=== PATIENT | male | born 1960 | race Caucasian/White ===

== ENCOUNTER 2023-01-20 11:00 | Outpatient (OUT) | payer BC, SELFPAY ==
[2023-01-20 11:35] LABS: Basophils Percent Auto 0.5 % (0.2-2.0); Eosinophils Absolute Auto 0.2 10^3/uL (0.0-0.7); Eosinophils Percent Auto 2.6 % (0.9-7.0); Hematocrit 36.8 % (42.0-54.0); Hemoglobin 12.6 g/dL (14.0-18.0); Immature Granulocytes Abs Auto 0.04 10^3/uL (0.00-0.03); Immature Granulocytes Pct Auto 0.5 % (0.0-0.5); Lymphocytes Absolute Auto 1.9 10^3/uL (1.2-3.8); Lymphocytes Percent Auto 23.7 % (20.5-60.0); Mean Corpuscular HGB Conc 34.2 g/dL (29.9-35.2); Mean Corpuscular Hemoglobin 31.2 pg (25.9-34.0); Mean Corpuscular Volume 91.1 fL (80.0-94.0); Monocytes Absolute Auto 0.5 10^3/uL (0.3-0.8); Monocytes Percent Auto 5.8 % (1.7-12.0); Neutrophils Absolute Auto 5.4 10^3/uL (1.4-6.5); Neutrophils Percent Auto 66.9 % (43.0-75.0); Platelet Count 184 10^3/uL (150-450); Red Blood Count 4.04 10^6/uL (4.70-6.10); Red Cell Distribution Width 11.7 % (11.0-15.0); White Blood Count 8.1 10^3/uL (4.0-11.0)
[2023-01-20 12:30] LABS: Prostate Specific Antigen Scrn 1.81 ng/mL (<=4.00)
[2023-01-20 12:44] LABS: Alanine Aminotransferase 27 U/L (16-63); Albumin Level 3.8 g/dL (3.4-5.0); Alkaline Phosphatase 90 U/L (46-116); Anion Gap 10.2; Aspartate Amino Transferase 20 U/L (15-37); BUN Creatinine Ratio 24.1; Bilirubin Total 0.3 mg/dL (0.2-1.0); Calcium 9.2 mg/dL (8.5-10.1); Carbon Dioxide 30.9 mmol/L (21.0-32.0); Chloride 99 mmol/L (98-107); Chol HDL Ratio 4.2; Cholesterol 211 mg/dL (<=200); Estimated GFR (African America >60 (>=60); Estimated GFR (Non-African Ame >60 (>=60); Free T3 2.57 pg/mL (2.18-3.98); Globulin 3.7 g/dL; Glucose 170 mg/dL (74-106); HDL Cholesterol 50 mg/dL (40-60); Potassium 4.1 mmol/L (3.5-5.1); Sodium 136 mmol/L (136-145); Thyroid Stimulating Hormone 3.176 uIU/mL (0.358-3.740); Total Protein 7.5 g/dL (6.4-8.2); Triglycerides 180 mg/dL (<=150); Uric Acid 7.4 mg/dL (3.5-7.2)
[2023-01-20 19:25] LABS: Estimated Average Glucose 160 mg/dL; Glycohemoglobin A1C 7.2 % (4.5-6.2)
[2023-01-21 10:08] LABS: Insulin 15.2 uIU/mL (2.6-24.9)
== END 2023-01-20 11:01 | disposition home or self-care (01) ==
PROVIDERS: PCP Family Medicine; Visit Provider Family Medicine
DX: M54.50 Low back pain, unspecified (principal); E11.3513 Type 2 diabetes mellitus with proliferative diabetic retinopathy with macular edema, bilateral; E78.5 Hyperlipidemia, unspecified; I10 Essential (primary) hypertension; Z12.5 Encounter for screening for malignant neoplasm of prostate; Z12.12 Encounter for screening for malignant neoplasm of rectum
CPT/HCPCS: 36415; 80053; 80061; 83036; 83525; 84436; 84443; 84481; 84550; 85025; G0103

== ENCOUNTER 2023-04-10 11:11 | Outpatient (OUT) | payer BC, SELFPAY ==
--- OUTSIDE RECORDS SUMMARY | 2023-04-10 11:22 | XMS_ITS | CCD ---
Author Name Unknown Address [address] [facility] [facility] [address] [place] [address] Organization [facility] Care Team Providers Care Qualitative Field Coordinator Name Role Phone PAPO MEZA Attending Unavailable PAPO MEZA Primary Care Unavailable PAPO MEZA Attending Unavailable PAPO MEZA Primary Care Unavailable PAPO MEZA Admitting Unavailable PAPO MEZA Primary Care Unavailable LENKA YATES Attending Unavailable YAZMINY, DR BARROS Admitting Unavailable HOY, DR BARROS Attending Unavailable YAZMINY, DR BARROS Primary Care Unavailable YAZMINY, DR BARROS Admitting Unavailable HOY, DR BARROS Attending Unavailable HOY, DR BARROS Primary Care Unavailable HOY, DR BARROS Admitting Unavailable HOY, DR BARROS Attending Unavailable HOY, DR BARROS Primary Care Unavailable HOY, DR BARROS Consulting Unavailable HOY, DR BARROS Admitting Unavailable HOY, DR BARROS Attending Unavailable HOY, DR BARROS Primary Care Unavailable Problems Problem Classification Problem Date Documented Date Episodic/Chronic Diabetes mellitus with complications (2 sources) Type 2 diabetes mellitus with unspecified diabetic retinopathy with macular edema; Translations: [Type 2 diabetes mellitus with proliferative diabetic retinopathy with macular edema, bilateral] Onset: 08-30-2021 Chronic Diabetes mellitus without complication (1 source) Other abnormal glucose; Translations: [OTHER ABNORMAL GLUCOSE] Onset: 08-30-2021 Episodic Essential hypertension (1 source) Essential (primary) hypertension; Translations: [ESSENTIAL PRIMARY HYPERTENSION] Onset: 08-30-2021 Chronic Nonspecific chest pain (4 sources) Chest pain, unspecified; Translations: [CHEST PAIN UNSPECIFIED] Onset: 08-27-2021 Episodic Other male genital disorders (1 source) Male erectile dysfunction, unspecified; Translations: [MALE ERECTILE DYSFUNCTION UNS] Onset: 08-30-2021 Chronic Other screening for suspected conditions (not mental disorders or infectious disease) (2 sources) Encounter for screening for malignant neoplasm of prostate; Translations: [Encounter for screening for malignant neoplasm of rectum] Onset: 08-30-2021 Episodic Results Test Name Value Interpretation Reference Range Facility INSULINon 08-28-2021 Insulin 22.9 uIU/mL Normal 2.6-24.9 [facility] Comment on above: Performed By: #### I NSULIN #### [facility] [address] [address] [address] Abdias Adkins CBC AUTO DIFFon 08-27-2021 BASO # 0.0 103/ul Normal 0.0-0.1 [facility] Comment on above: Performed By: #### C BC #### [facility] [address] [address] [address] Abdias Adkins Basophils/100 WBC (Bld) 0.5 % Normal 0.2-2.0 [facility] Comment on above: Performed By: #### C BC #### [facility] [address] [address] [address] Abdias Adkins EO # 0.2 103/ul Normal 0.0-0.7 [facility] Comment on above: Performed By: #### C BC #### [facility] [address] [address] [address] Abdias Adkins Eosinophils/100 WBC (Bld) 2.1 % Normal 0.9-7.0 [facility] Comment on above: Performed By: #### C BC #### [facility] [address] [address] [address] Abdias Adkins Erythrocyte distribution width (RBC) [Ratio] 11.9 % Normal 11.0-15.0 [facility] Comment on above: Performed By: #### C BC #### [facility] [address] [address] [address] Abdias Adkins Hematocrit (Bld) [Volume fraction] 36.6 % Critically low 42.0-54.0 [facility] Comment on above: Performed By: #### C BC #### [facility] [address] [address] [address] Abdias Adkins Hemoglobin (Bld) [Mass/Vol] 12.8 g/dL Critically low 14.0-18.0 [facility] Comment on above: Performed By: #### C BC #### [facility] [address] [place] [address] Dr. Abdias Adkins IG # 0.04 10e3/ul Critically high 0.00-0.03 [facility] Comment on above: Performed By: #### C BC #### [facility] [address] [place] [address] Dr. Abdias Adkins IG % 0.5 % Normal 0.0-0.5 [facility] Comment on above: Performed By: #### C BC #### [facility] [address] [place] [address] Dr. Abdias Adkins LYMPH # 2.1 103/ul Normal 1.2-3.8 [facility] Comment on above: Performed By: #### C BC #### [facility] [address] [place] [address] Dr. Abdias Adkins Lymphocytes/100 WBC (Bld) 25.5 % Normal 20.5-60.0 [facility] Comment on above: Performed By: #### C BC #### [facility] [address] [place] [address] Dr. Abdias Adkins MANUAL DIFF REQ NO Normal [facility] Comment on above: Performed By: #### C BC #### [facility] [address] [place] [address] Dr. Abdias Adkins MCH (RBC) [Entitic mass] 30.8 pg Normal 25.9-34.0 [facility] Comment on above: Performed By: #### C BC #### [facility] [address] [place] [address] Dr. Abdias Adkins MCHC (RBC) [Mass/Vol] 35.0 g/dL Normal 29.9-35.2 [facility] Comment on above: Performed By: #### C BC #### [facility] [address] [place] [address] Dr. Abdias Adkins MCV (RBC) [Entitic vol] 88.0 fL Normal 80.0-94.0 [facility] Comment on above: Performed By: #### C BC #### [facility] [address] [address] [address] Abdias Adkins MONO # 0.4 103/ul Normal 0.3-0.8 [facility] Comment on above: Performed By: #### C BC #### [facility] [address] [address] [address] Abdias Adkins Monocytes/100 WBC (Bld) 4.9 % Normal 1.7-12.0 [facility] Comment on above: Performed By: #### C BC #### [facility] [address] [address] [address] Abdias Adkins NEUT # 5.5 103/ul Normal 1.4-6.5 [facility] Comment on above: Performed By: #### C BC #### [facility] [address] [place] [address] Dr. Abdias Adkins Neutrophils/100 WBC (Bld) 66.5 % Normal 43.0-75.0 [facility] Comment on above: Performed By: #### C BC #### [facility] [address] [address] [address] Abdias Adkins Platelet mean volume (Bld) [Entitic vol] 9.9 fL Normal 9.5-13.5 [facility] Comment on above: Performed By: #### C BC #### [facility] [address] [address] [address] Abdias Adkins PLT 200 103/ul Normal 150-[address] [facility] Comment on above: Performed By: #### C BC #### [facility] [address] [address] [address] Abdias Adkins RBC 4.16 106/ul Critically low 4.70-6.10 [facility] Comment on above: Performed By: #### C BC #### [facility] [address] [address] [address] Abdias Adkins WBC 8.3 103/ul Normal 4.0-11.[address] [facility] Comment on above: Performed By: #### C BC #### [facility] [address] [address] [address] Abdias Adkins FREE THYROXINE INDEX T7on FTI 2.04 Normal 1.30-4.50 [facility] Comment on above: Performed By: #### U SUNDEEP, T7, CMP, LIPID, TSH #### [facility] [address] [address] [address] Abdias Adkins T3U 34.0 % Normal 33.0-40.0 [facility] Comment on above: Performed By: #### U SUNDEEP, T7, CMP, LIPID, TSH #### [facility] [address] [address] [address] Abdias Adkins T4 [Mass/Vol] 6.00 ug/dL Normal 4.50-12.10 [facility] Comment on above: Performed By: #### U SUNDEEP, T7, CMP, LIPID, TSH #### [facility] [address] [address] [address] Abdias Adkins GLYCOHEMOGLOBIN A1Con 2021 ADA RECOMMENDATION SEE BELOW Normal [facility] Comment on above: Result Comment: ADA RECOMMENDED LIMIT 4.0 - 6.0 ADA THERAPEUTIC TARGET < 7.0 ACTION SUGGESTED > 7.0 Performed By: #### A 1C #### [facility] [address] [place] [address] Dr. Abdias Adkins Glucose [Mass/Vol] 189 mg/dL Normal [facility] Comment on above: Performed By: #### A 1C #### [facility] [address] [place] [address] Dr. Abdias Adkins HbA1c (Bld) [Mass fraction] 8.2 % Critically high 4.5-6.2 [facility] Comment on above: Performed By: #### A 1C #### [facility] [address] [place] [address] Dr. Abdias Adkins LIPID PROFILEon 08-27-2021 CHOL-HDL RATIO NORM SEE BELOW Normal [facility] Comment on above: Result Comment: 3.3 - 4.4 LOW RISK 4.4 - 7.1 AVERAGE RISK 7.1 - 11.0 MODERATE RISK >11.0 HIGH RISK Performed By: #### U SUNDEEP, T7, CMP, LIPID, TSH #### [facility] [address] [address] [address] Abdias Adkins Cholesterol [Mass/Vol] 214 mg/dL Critically high <=200 [facility] Comment on above: Performed By: #### U SUNDEEP, T7, CMP, LIPID, TSH #### [facility] [address] [address] [address] Abdias Adkins Cholesterol in HDL [Mass/Vol] 52 mg/dL Normal 40-60 [facility] Comment on above: Performed By: #### U SUNDEEP, T7, CMP, LIPID, TSH #### [facility] [address] [address] [address] Abdias Adkins Cholesterol in LDL [Mass/Vol] 148.4 mg/dL Normal [facility] Comment on above: Performed By: #### U SUNDEEP, T7, CMP, LIPID, TSH #### [facility] [address] [address] [address] Abdias Adkins Cholesterol.total/Cho lesterol in HDL [Mass ratio] 4.1 {ratio} Normal [facility] Comment on above: Performed By: #### U SUNDEEP, T7, CMP, LIPID, TSH #### [facility] [address] [address] [address] Abdias Adkins HDL NORMAL > or = 60 mg/dl - LOW CARDIOVASCULAR RISK <40 mg/dl - HIGH CARDIOVASCULAR RISK Normal [facility] Comment on above: Performed By: #### U SUNDEEP, T7, CMP, LIPID, TSH #### [facility] [address] [address] [address] Abdias Adkins LDL CALC NORMAL SEE BELOW Normal [facility] Comment on above: Result Comment: <100 mg/dl OPTIMAL 100 - 129 mg/dl NEAR OR ABOVE OPTIMAL 130 - 159 mg/dl BORDERLINE HIGH 160 - 189 mg/dl HIGH >190 mg/dl VERY HIGH Performed By: #### U SUNDEEP, T7, CMP, LIPID, TSH #### [facility] [address] [address] [address] Abdias Adkins Triglyceride [Mass/Vol] 68 mg/dL Normal <=[address] [facility] Comment on above: Performed By: #### U SUNDEEP, T7, CMP, LIPID, TSH #### [facility] [address] [address] [address] Abdias Adkins VLDL CALC 13.6 mg/dL Normal [facility] Comment on above: Performed By: #### U SUNDEEP, T7, CMP, LIPID, TSH #### [facility] [address] [address] [address] Abdias Adkins OCC BLD IMMUNO SCREENon 08-15 OCCULT BLOOD Negative Normal NEGATIVE [facility] Comment on above: Performed By: #### O BSCRN #### [facility] [address] [address] [address] Abdias Adkins PROF 14(COMP METB)on 022 Albumin [Mass/Vol] 3.5 g/dL Normal 3.4-5.0 [facility] Comment on above: Performed By: #### U SUNDEEP, T7, CMP, LIPID, TSH #### [facility] [address] [place] [address] Dr. Abdias Adkins Albumin/Globulin [Mass ratio] 1.1 {ratio} Normal [facility] Comment on above: Performed By: #### U SUNDEEP, T7, CMP, LIPID, TSH #### [facility] [address] [address] [address] Abdias Adkins ALP [Catalytic activity/Vol] 103 U/L Normal 46-116 [facility] Comment on above: Performed By: #### U SUNDEEP, T7, CMP, LIPID, TSH #### [facility] [address] [place] [address] Dr. Abdias Adkins ALT [Catalytic activity/Vol] 25 U/L Normal 16-63 [facility] Comment on above: Performed By: #### U SUNDEEP, T7, CMP, LIPID, TSH #### [facility] [address] [address] [address] Abdias Adkins Anion gap [Moles/Vol] 12.5 mmol/L Normal [facility] Comment on above: Performed By: #### U SUNDEEP, T7, CMP, LIPID, TSH #### [facility] [address] [address] [address] Abdias Adkins AST [Catalytic activity/Vol] 13 U/L Critically low 15-[address] [facility] Comment on above: Performed By: #### U SUNDEEP, T7, CMP, LIPID, TSH #### [facility] [address] [address] [address] Abdias Adkins Bilirubin [Mass/Vol] 0.4 mg/dL Normal 0.2-1.0 [facility] Comment on above: Performed By: #### U SUNDEEP, T7, CMP, LIPID, TSH #### [facility] [address] [address] [address] Abdias Adkins Calcium [Mass/Vol] 8.6 mg/dL Normal 8.5-10.1 [facility] Comment on above: Performed By: #### U SUNDEEP, T7, CMP, LIPID, TSH #### [facility] [address] [address] [address] Abdias Adkins Chloride [Moles/Vol] 102 mmol/L Normal 98-[address] [facility] Comment on above: Performed By: #### U SUNDEEP, T7, CMP, LIPID, TSH #### [facility] [address] [address] [address] Abdias Adkins CO2 [Moles/Vol] 27.3 mmol/L Normal 21.0-32.0 [facility] Comment on above: Performed By: #### U SUNDEEP, T7, CMP, LIPID, TSH #### [facility] [address] [address] [address] Abdias Adkins Creatinine [Mass/Vol] 1.03 mg/dL Normal 0.70-1.30 [facility] Comment on above: Performed By: #### U SUNDEEP, T7, CMP, LIPID, TSH #### [facility] [address] [place] [address] Dr. Abdias Adkins EGFR-AF [place]LANDER >60 Normal >=60 [facility] Comment on above: Performed By: #### U SUNDEEP, T7, CMP, LIPID, TSH #### [facility] [address] [place] [address] Dr. Abdias Adkins EGFR-NON AF [place]ER >60 Normal >=60 [facility] Comment on above: Performed By: #### U SUNDEEP, T7, CMP, LIPID, TSH #### [facility] [address] [address] [address] Abdias Adkins Globulin (S) [Mass/Vol] 3.3 g/dL Normal [facility] Comment on above: Performed By: #### U SUNDEEP, T7, CMP, LIPID, TSH #### [facility] [address] [address] [address] Abdias Adkins Glucose [Mass/Vol] 254 mg/dL Critically high 74-106 [facility] Comment on above: Performed By: #### U SUNDEEP, T7, CMP, LIPID, TSH #### [facility] [address] [place] [address] Dr. Abdias Adkins Potassium [Moles/Vol] 4.8 mmol/L Normal 3.5-5.1 [facility] Comment on above: Performed By: #### U SUNDEEP, T7, CMP, LIPID, TSH #### [facility] [address] [address] [address] Abdias Adkins Protein [Mass/Vol] 6.8 g/dL Normal 6.4-8.2 [facility] Comment on above: Performed By: #### U SUNDEEP, T7, CMP, LIPID, TSH #### [facility] [address] [address] [address] Abdias Adkins Sodium [Moles/Vol] 137 mmol/L Normal 136-145 [facility] Comment on above: Performed By: #### U SUNDEEP, T7, CMP, LIPID, TSH #### [facility] [address] [address] [address] Abdias Adkins Urea nitrogen [Mass/Vol] 29.0 mg/dL Critically high 7.0-18.0 [facility] Comment on above: Performed By: #### U SUNDEEP, T7, CMP, LIPID, TSH #### [facility] [address] [address] [address] Abdias Adkins Urea nitrogen/Creatinine [Mass ratio] 28.2 mg/mg Normal [facility] Comment on above: Performed By: #### U SUNDEEP, T7, CMP, LIPID, TSH #### [facility] [address] [address] [address] Abdias Adkins TSHon 08-27-2021 TSH 1.506 uIU/mL Normal 0.358-3.740 [facility] Comment on above: Performed By: #### U SUNDEEP, T7, CMP, LIPID, TSH #### [facility] [address] [address] [address] Abdias Adkins TSH RANGE SEE BELOW Normal [facility] Comment on above: Result Comment: <0.3 4 UIU/ml HYPERTHYROID 0.34-5.60 UIU/ml EUTHYROID >5.60 UIU/ml HYPOTHYROID Performed By: #### U SUNDEEP, T7, CMP, LIPID, TSH #### [facility] [address] [place] [address] Dr. Abdias Adkins URIC ACID SERUMon 08-27-2021 Urate [Mass/Vol] 5.0 mg/dL Normal 3.5-7.2 [facility] Comment on above: Performed By: #### U SUNDEEP, T7, CMP, LIPID, TSH #### [facility] [address] [place] [address] Dr. Abdias Adkins CBC with Diffon 03-31-2021 Abs. Basophil <0.03 Normal 0.00-0.20 [facility] Comment on above: Performed By: #### C GARFIELD CP, TROPI #### [facility] [address] [place] [id number] Cadmium Plater: Donal Almonte MD Abs.Imm.Granulocyte <0.03 Normal 0.00-0.30 [facility] Comment on above: Performed By: #### C GARFIELD CP, TROPI #### [facility] [address] [place] [address] Cadmium Plater: Donal Almonte MD Abs.Neutrophil (Seg) 3.84 k/uL Normal 1.50-8.10 [facility] Comment on above: Performed By: #### C DP, CP, TROPI #### [address] [place], [place] [id number] Cadmium Plater: Donal Almonte MD Basophils/100 WBC (Bld) 0 % Normal 0-2 [facility] Comment on above: Performed By: #### C DP, CP, TROPI #### [address] [place], [place] [address] Cadmium Plater: Donal Almonte MD Eosinophils (Bld) [#/Vol] 0.12 10*3/uL Normal 0.00-0.44 [facility] Comment on above: Performed By: #### C DP, CP, TROPI #### [address] [place] [id number] Cadmium Plater: Donal Almonte MD Eosinophils/100 WBC (Bld) 2 % Normal 1-4 [facility] Comment on above: Performed By: #### C DP, CP, TROPI #### [address] [place], [place] [address] Cadmium Plater: Donal Almonte MD Erythrocyte distribution width (RBC) [Ratio] 11.6 % Low 11.8-14.4 [facility] Comment on above: Performed By: #### C DP, CP, TROPI #### [address] [place], [place] [address] Cadmium Plater: Donal Almonte MD Hematocrit (Bld) [Volume fraction] 42.9 % Normal 40.7-50.3 [facility] Comment on above: Performed By: #### C DP, CP, TROPI #### [address] [place], [facility] Cadmium Plater: Donal Almonte MD Hemoglobin (Bld) [Mass/Vol] 14.8 g/dL Normal 13.0-17.0 [facility] Comment on above: Performed By: #### C DP, CP, TROPI #### [facility] [address] [place], [facility] Cadmium Plater: Donal Almonte MD Immature granulocytes/100 WBC (Bld) 0 % Normal 0 [facility] Comment on above: Performed By: #### C DP, CP, TROPI #### [facility] [address] [place], [facility] Cadmium Plater: Donal Almonte MD Lymphocytes (Bld) [#/Vol] 1.20 10*3/uL Normal 1.10-3.70 [facility] Comment on above: Performed By: #### C GARFIELD CP, TROPI #### [address] [place], [place] [address] Cadmium Plater: Donal Almonte MD Lymphocytes/100 WBC (Bld) 21 % Low 24-43 [facility] Comment on above: Performed By: #### C GARFIELD CP, TROPI #### [address] [place], [place] [address] Cadmium Plater: Donal Almonte MD MCH (RBC) [Entitic mass] 30.3 pg Normal 25.2-33.5 [facility] Comment on above: Performed By: #### C GARFIELD CP, TROPI #### [address] [place], [place] [address] Cadmium Plater: Donal Almonte MD MCHC (RBC) [Mass/Vol] 34.5 g/dL Normal 28.4-34.8 [facility] Comment on above: Performed By: #### C GARFIELD CP, TROPI #### [address] [place], [facility] Cadmium Plater: Donal Almonte MD MCV (RBC) [Entitic vol] 87.9 fL Normal 82.6-102.9 [facility] Comment on above: Performed By: #### C DP, CP, TROPI #### [facility] [address] [place], [place] [id number] Cadmium Plater: Donal Almonte MD Monocytes (Bld) [#/Vol] 0.43 10*3/uL Normal 0.10-1.20 [facility] Comment on above: Performed By: #### C DP, CP, TROPI #### [facility] [address] [place], [facility] Cadmium Plater: Donal Almonte MD Monocytes/100 WBC (Bld) 8 % Normal 3-12 [facility] Comment on above: Performed By: #### C DP, CP, TROPI #### [facility] [address] [place], [facility] Cadmium Plater: Donal Almonte MD Neutrophil (Seg) 69 % High 36-65 [facility] Comment on above: Performed By: #### C DP, CP, TROPI #### [facility] [address] [place], [facility] Cadmium Plater: Donal Almonte MD NRBC Automated 0.0 per 100 WBC Normal 0.0 [facility] Comment on above: Performed By: #### C DP, CP, TROPI #### [address] [place], [facility] Cadmium Plater: Donal Almonte MD Platelet mean volume (Bld) [Entitic vol] 9.9 fL Normal 8.1-13.5 [facility] Comment on above: Performed By: #### C DP, CP, TROPI #### [facility] [address] [place], [place] [id number] Cadmium Plater: Donal Almonte MD Platelets (Bld) [#/Vol] 232 10*3/uL Normal 138-453 [facility] Comment on above: Performed By: #### C DP, CP, TROPI #### [facility] [address] [place], [place] [id number] Cadmium Plater: Donal Almonte MD RBC (Bld) [#/Vol] 4.88 10*6/uL Normal 4.21-5.77 [facility] Comment on above: Performed By: #### C DP, CP, TROPI #### [address] [place] [address] Cadmium Plater: Donal Almonte MD WBC (Bld) [#/Vol] 5.6 10*3/uL Normal 3.5-11.3 [facility] Comment on above: Performed By: #### C DP, CP, TROPI #### [address] [place] [id number] Cadmium Plater: Donal Almonte MD Auto Diff Performed NOT REPORTED Normal [facility] Comment on above: Performed By: #### C DP, CP, TROPI #### [address] [place], [facility] Cadmium Plater: Donal Almonte MD Platelet Comment NOT REPORTED Normal [facility] Comment on above: Performed By: #### C DP, CP, TROPI #### [address] [place] [address] Cadmium Plater: Donal Almonte MD RBC morphology finding Nom (Bld) NOT REPORTED Normal [facility] Comment on above: Performed By: #### C DP, CP, TROPI #### [address] [place] [address] Cadmium Plater: Donal Almonte MD WBC Morphology NOT REPORTED Normal [facility] Comment on above: Performed By: #### C DP, CP, TROPI #### [address] [place], [place] [id number] Cadmium Plater: Donal Almonte MD CT CHEST ABDOMEN PELVIS W CO NTRASTon 03-31-2021 CT CHEST ABDOMEN PELVIS W CONTRAST EXAMINATION: CT OF THE CHEST, ABDOMEN, AND PELVIS WITH CONTRAST 03/31/2021 2:27 pm TECHNIQUE: CT of the chest, abdomen and pelvis was performed with the administration of intravenous contrast. Multiplanar reformatted images are provided for review. Dose modulation, iterative reconstruction, and/or weight based adjustment of the mA/kV was utilized to reduce the radiation dose to as low as reasonably achievable. COMPARISON: None HISTORY: ORDERING SYSTEM PROVIDED HISTORY: SOB, vomiting TECHNOLOGIST PROVIDED HISTORY: SOB, vomiting Decision Support Exception - unselect if not a suspected or confirmed emergency medical condition->Emergency Medical Condition (MA) FINDINGS: Chest: Mediastinum: Three-vessel coronary artery calcification. Mild aortic valvular calcification. Trace pericardial fluid. No lymphadenopathy. Lungs/pleura: Few 2-4 mm solid pulmonary micronodules. Trace right pleural effusion. No pneumothorax. Soft Tissues/Bones: Multilevel mild degenerative disc disease. Abdomen/Pelvis: Organs: Liver is normal in contour and enhancement. Gallbladder is surgically absent. No biliary ductal dilatation. Pancreas is unremarkable. Adrenals are unremarkable. Spleen is normal in size. No renal calculi or hydronephrosis. Vasculature is unremarkable. GI/Bowel: Few colonic diverticula. Bowel is non-dilated without wall thickening. Appendix is not seen though there are no secondary signs of appendicitis. Pelvis: Unremarkable. Peritoneum/Retroperi toneum:No free fluid, free air, organized fluid collection or lymphadenopathy. Bones: Multilevel degenerative disc disease. Status post posterior instrumented fusion at L5-S1 without evidence of complication. IMPRESSION: 1. No acute process in the chest, abdomen or pelvis. 2. Few 2-4 mm solid pulmonary micronodules. If the patient is low risk for lung cancer, no follow-up is advised. If high risk, optional follow-up chest CT in 12 months per Fleischner criteria. Interpreted by: Juice Winter MD Signed by: Juice Winter MD 03/31/21 Final result Normal [facility] Comp Metabolic Profon 2021 AST [Catalytic activity/Vol] 33 U/L Normal <40 [facility] Comment on above: Performed By: #### C DP, CP, TROPI #### [facility] [address] [place] [id number] Cadmium Plater: Donal Almonte MD (cont.) Normal [facility] Comment on above: Result Comment: Aver age GFR for 60-69 years old: 85 mL/min/1.73sq m Chronic Kidney Disease: <60 mL/min/1.73sq m Kidney failure: <15 mL/min/1.73sq m eGFR calculated using average adult body mass. Additional eGFR calculator available at: http://www.[employer]/multiple_crcl_2012.htm Performed By: #### C DP, CP, TROPI #### [facility] [address] [place] [address] [place], [place] [id number] Cadmium Plater: Donal Almonte MD Albumin [Mass/Vol] 4.0 g/dL Normal 3.5-5.2 [facility] Comment on above: Performed By: #### C DP, CP, TROPI #### [address] [place] [id number] Cadmium Plater: Donal Almonte MD Albumin/Glob Ratio 1.2 Normal 1.0-2.5 [facility] Comment on above: Performed By: #### C DP, CP, TROPI #### [address] [place], [place] [phone] Cadmium Plater: Donal Almonte MD Alkaline Phos 92 U/L Normal 40-129 [facility] Comment on above: Performed By: #### C DP, CP, TROPI #### [address] [place] [id number] Cadmium Plater: Donal Almonte MD ALT [Catalytic activity/Vol] 25 U/L Normal 5-41 [facility] Comment on above: Performed By: #### C DP, CP, TROPI #### [address] [place] [id number] Cadmium Plater: Donal Almonte MD Anion gap [Moles/Vol] 15 mmol/L Normal 9-17 [facility] Comment on above: Performed By: #### C DP, CP, TROPI #### [facility] [address] [place], [place] [phone] Cadmium Plater: Donal Almonte MD Bilirubin [Mass/Vol] 0.28 mg/dL Low 0.3-1.2 [facility] Comment on above: Performed By: #### C DP, CP, TROPI #### [facility] [address] [place], [place] [phone] Cadmium Plater: Donal Almonte MD BUN/CRE Ratio 16 Normal 9-20 [facility] Comment on above: Performed By: #### C DP, CP, TROPI #### [facility] [address] [place], [place] [phone] Cadmium Plater: Donal Almonte MD Calcium [Mass/Vol] 9.1 mg/dL Normal 8.6-10.4 [facility] Comment on above: Performed By: #### C DP, CP, TROPI #### [facility] [address] [place], [place] [phone] Cadmium Plater: Donal Almonte MD Chloride [Moles/Vol] 97 mmol/L Low 98-107 [facility] Comment on above: Performed By: #### C DP, CP, TROPI #### [facility] [address] [place] [address] [place] [place], [place] [id number] Cadmium Plater: Donal Almonte MD CO2 [Moles/Vol] 22 mmol/L Normal 20-31 [facility] Comment on above: Performed By: #### C DP, CP, TROPI #### [facility] [address] [place], [place] [phone] Cadmium Plater: Donal Almonte MD Creatinine [Mass/Vol] 1.35 mg/dL High 0.70-1.20 [facility] Comment on above: Performed By: #### C DP, CP, TROPI #### [facility] [address] [place], [place] [phone] Cadmium Plater: Donal Almonte MD GFR, Amer >60 Normal >60 [facility] Comment on above: Performed By: #### C DP, CP, TROPI #### [facility] [address] [place], [place] [phone] Cadmium Plater: Donal Almonte MD GFR,non Amer 54 mL/min Low >60 [facility] Comment on above: Performed By: #### C DP, CP, TROPI #### [facility] [address] [place], [place] [phone] Cadmium Plater: Donal Almonte MD Glucose [Mass/Vol] 308 mg/dL High 70-99 [facility] Comment on above: Performed By: #### C DP, CP, TROPI #### [facility] [address] [place] [address] Dr[place], [place] [phone] Cadmium Plater: Donal Almonte MD Potassium [Moles/Vol] 4.3 mmol/L Normal 3.7-5.3 [facility] Comment on above: Performed By: #### C GARFIELD CP, TROPI #### [facility] [address] [place] [address] [address] [place], [place] [phone] Cadmium Plater: Donal Almonte MD Protein [Mass/Vol] 7.4 g/dL Normal 6.4-8.3 [facility] Comment on above: Performed By: #### C DP CP, TROPI #### [facility] [address] [place], [place] [phone] Cadmium Plater: Donal Almonte MD Sodium [Moles/Vol] 134 mmol/L Low 135-144 [facility] Comment on above: Performed By: #### C DP, CP, TROPI #### [facility] [address] [place], [place] [phone] Cadmium Plater: Donal Almonte MD Staging: Normal [facility] Comment on above: Result Comment: Stag e 1: Some kidney damage normal GFR Stage 2: Mild kidney damage GFR 60-89 Stage 3: Moderate kidney damage GFR 30-59 Stage 4: Severe kidney damage GFR 15-29 Stage 5: Severe kidney damage GFR <15 ESRD - chronic treatment by dialysis or transplant Performed By: #### C TERRY MERRILL, TROPI #### [facility] [address] [place], [place] [phone] Cadmium Plater: Donal Almonte MD Urea nitrogen [Mass/Vol] 22 mg/dL Normal 8-23 [facility] Comment on above: Performed By: #### C TERRY MERRILL, TROPI #### [facility] [address] [place], [place] [phone] Cadmium Plater: Donal Almonte MD Lactic Acidon 03-31-2021 Lactate [Moles/Vol] 2.1 mmol/L Normal 0.5-2.2 [facility] Comment on above: Performed By: #### L ACTIC #### [facility] [address] [place] [address] [place]. [place], [place] [phone] Cadmium Plater: Donal Almonte MD Lactic Acid,Whole Bl NOT REPORTED Normal 0.7-2.1 [facility] Comment on above: Performed By: #### L ACTIC #### [address] [place], [place] [phone] Cadmium Plater: Donal Almonte MD [id number] 03-31-2021 SARS-CoV-2 (COVID-19) RNA ROZ+probe Ql (Unsp spec) Detected Abnormal NOTDET [facility] Comment on above: Result Comment: Rapid NAAT: The specimen is POSITIVE for SARS-Cov-2, the novel coronavirus associated with COVID-19. This test has been authorized by the FDA under an Emergency Use Authorization (EUA) for use by authorized laboratories. The ID NOW COVID-19 assay is designed to detect the virus that causes COVID-19 in patients with signs and symptoms of infection who are suspected of COVID-19. An individual without symptoms of COVID-19 and who is not shedding SARS-CoV-2 virus would expect to have a negative (not detected) result in this assay. Fact sheet for Healthcare Providers: https://www.fda.gov/media/036020/download Fact sheet for Patients: https://www.fda.gov/media/840150/download Methodology: Isothermal Nucleic Acid Amplification Results reported to the appropriate Health Department Performed By: #### C OVRB #### [facility] [address] [place], [place] [phone] Cadmium Plater: Donal Almonte MD Troponinon 03-31-2021 Troponin, High Sens 32 ng/L High 0-22 [facility] Comment on above: Result Comment: High Sensitivity Troponin values cannot be compared with other Troponin methodologies. Patients with high levels of Biotin oral intake (i.e >5mg/day) may have falsely decreased Troponin levels. Samples collected within 8 hours of biotin intake may require additional information for diagnosis. Performed By: #### T ROPI #### [facility] [address] [place] [address] [place] [place] [phone] Cadmium Plater: Donal Almonte MD Troponin Interp. NOT REPORTED Normal [facility] Comment on above: Performed By: #### T ROPI #### [address] [place], [place] [phone] Cadmium Plater: Donal Almonte MD Troponin T NOT REPORTED Normal <0.03 [facility] Comment on above: Performed By: #### T ROPI #### [facility] [address] [place] [address] Dr. [place], [place] [phone] Cadmium Plater: Donal Almonte MD Troponin, High Sens 35 ng/L High 0-22 [facility] Comment on above: Result Comment: High Sensitivity Troponin values cannot be compared with other Troponin methodologies. Patients with high levels of Biotin oral intake (i.e >5mg/day) may have falsely decreased Troponin levels. Samples collected within 8 hours of biotin intake may require additional information for diagnosis. Performed By: #### C DP, CP, TROPI #### [facility] [address] [place], [place] [phone] Cadmium Plater: Donal Almonte MD Troponin Interp. NOT REPORTED Normal [facility] Comment on above: Performed By: #### C DP CP, TROPI #### [facility] [address] [place], [place] [phone] Cadmium Plater: Donal Almonte MD Troponin T NOT REPORTED Normal <0.03 [facility] Comment on above: Performed By: #### C DP CP, TROPI #### [facility] [address] [place], [place] [phone] Cadmium Plater: Donal Almonte MD Urinalysis w/ Microon 2021 ----- Normal [facility] Comment on above: Performed By: #### U AMIC #### [facility] [address] [place] [address] [place]. [place], [place] [phone] Cadmium Plater: Donal Almonte MD Bilirubin, SemiQt,Ur Negative Normal NEG [facility] Comment on above: Performed By: #### U AMIC #### [facility] [address] [place], [place] [phone] Cadmium Plater: Donal Almonte MD Blood, Urine Negative Normal NEG [facility] Comment on above: Performed By: #### U AMIC #### [facility] [address] [place] [address] [place]. [place], [place] [phone] Cadmium Plater: Donal Almonte MD Clarity (U) Clear Normal CLEAR [facility] Comment on above: Performed By: #### U AMIC #### [facility] [address] [place], [place] [phone] Cadmium Plater: Donal Almonte MD Color (U) Yellow Normal YEL [facility] Comment on above: Performed By: #### U AMIC #### [facility] [address] [place], [place] [phone] Cadmium Plater: Donal Almonte MD Epithelial cells LM Ql (Urine sed) 2 TO 5 Normal 0-5 [facility] Comment on above: Performed By: #### U AMIC #### [facility] [address] [place] [address] [place] [id number] Cadmium Plater: Donal Almonte MD Glucose Ql (U) Negative Normal NEG [facility] Comment on above: Performed By: #### U AMIC #### [facility] [address] [place] [address] Dr. [place], [place] [phone] Cadmium Plater: Donal Almonte MD Ketones Ql (U) Negative Normal NEG [facility] Comment on above: Performed By: #### U AMIC #### [facility] [address] [place] [address] [place]. [place], [place] [phone] Cadmium Plater: Donal Almonte MD Leukocyte esterase Test strip Ql (U) Negative Normal NEG [facility] Comment on above: Performed By: #### U AMIC #### [facility] [address] [place] [address] Dr. [place], [place] [phone] Cadmium Plater: Donal Almonte MD Nitrite,Ur Negative Normal NEG [facility] Comment on above: Performed By: #### U AMIC #### [facility] [address] [place] [address] Dr. [place], [place] [phone] Cadmium Plater: Donal Almonte MD PH,Ur 5.0 Normal 5.0-9.0 [facility] Comment on above: Performed By: #### U AMIC #### [facility] [address] [place] [address] Dr. [place], [place] [phone] Cadmium Plater: Donal Almonte MD Protein Ql (U) Negative Normal NEG [facility] Comment on above: Performed By: #### U AMIC #### [facility] [address] [place] [address] [place]. [place], [place] [phone] Cadmium Plater: Donal Almonte MD Spec. [place],Ur 1.015 Normal 1.010-1.020 [facility] Comment on above: Performed By: #### U AMIC #### [facility] [address] [place], [place] [phone] Cadmium Plater: Donal Almonte MD Urine RBC's None Normal 0-2 [facility] Comment on above: Performed By: #### U AMIC #### [facility] [address] [place], [place] [phone] Cadmium Plater: Donal Almonte MD Urine WBC's 0 TO 2 Normal 0-5 [facility] Comment on above: Performed By: #### U AMIC #### [facility] [address] [place], [place] [phone] Cadmium Plater: Donal Almonte MD Urobilinogen,Ur Normal Normal NORM [facility] Comment on above: Performed By: #### U AMIC #### [facility] [address] [place], [place] [phone] Cadmium Plater: Donal Almonte MD Amorphous sediment LM Ql (Urine sed) NOT REPORTED Normal [facility] Comment on above: Performed By: #### U AMIC #### [facility] [address] [place] [address] Dr. [place], [place] [phone] Cadmium Plater: Donal Almonte MD Bacteria NOT REPORTED Normal [facility] Comment on above: Performed By: #### U AMIC #### [facility] [address] [place], [place] [phone] Cadmium Plater: Donal Almonte MD Casts NOT REPORTED Normal [facility] Comment on above: Performed By: #### U AMIC #### [facility] [address] [place], [place] [phone] Cadmium Plater: Donal Almonte MD Comment NOT REPORTED Normal [facility] Comment on above: Performed By: #### U AMIC #### [facility] [address] [place], [place] [phone] Cadmium Plater: Donal Almonte MD Crystals LM Nom (Urine sed) NOT REPORTED Normal [facility] Comment on above: Performed By: #### U AMIC #### [facility] [address] [place], [place] [phone] Cadmium Plater: Donal Almonte MD Epithelial, Renal NOT REPORTED Normal 0 [facility] Comment on above: Performed By: #### U AMIC #### [facility] [address] [place], [place] [phone] Cadmium Plater: Donal Almonte MD Mucus Strands NOT REPORTED Normal NONE [facility] Comment on above: Performed By: #### U AMIC #### [facility] [address] [place], [place] [phone] Cadmium Plater: Donal Almonte MD Other Observations NOT REPORTED Normal NREQ [facility] Comment on above: Performed By: #### U AMIC #### [facility] [address] [place] [phone] Cadmium Plater: Donal Almonte MD Trichomonas NOT REPORTED Normal NONE [facility] Comment on above: Performed By: #### U AMIC #### [facility] [address] [place] [address] [place]. [place], [place] [phone] Cadmium Plater: Donal Almonte MD Yeast NOT REPORTED Normal [facility] Comment on above: Performed By: #### U AMIC #### [facility] [address] [place], [place] [phone] Cadmium Plater: Donal Almonte MD MRI Spine Lumbar w/o Contras ton 08-17-2019 MRI Spine Lumbar w/o Contrast IMPRESSION: 1. Severe degenerative changes at L4-L5, as described above. 2. Postoperative changes compatible with posterior decompression and posterior spinal fusion at L5-S1 in satisfactory alignment. Mild to moderate degenerative changes in the other levels of the lumbar spine. 3. Indeterminate 1.7 cm right renal lesion. Consider further evaluation with an MRI study. Addendum Dictated by: Javier Mg MD Dictated DT/TM: 08/17/2019 4:07 pm Signed by: Javier Mg MD Signed (Electronic Signature): 08/17/2019 4:08 pm (If Report Is Signed, Electronically Signed in Other Vendor System) MRI of the lumbar spine without contrast from 08/16/2019. Indication: Back pain. Technique: Sagittal and axial T1 and T2-weighted images and Sagittal STIR . Comparison: None. Findings: The vertebral body heights are maintained. Mild anterolisthesis of L4 on L5 secondary to facet arthropathy.. The tip of the conus medullaris is at L1-L2 and signal intensity of the included spinal cord is normal. . Individual levels: L1-L2: Moderate bilateral facet arthropathy. L2-L3: Mild disc bulge eccentric to the left. Moderate bilateral facet arthropathy and ligamentum flavum hypertrophy. Mild constriction of the bilateral lateral recesses.. L3-L4: Minimal disc bulge and mild to moderate bilateral facet arthropathy. Posterior annular fissuring.. L4-L5: Moderate-sized right paracentral disc extrusion causing mass effect on the right-sided L4 nerve root. This is superimposed on moderate disc bulge and severe bilateral facet arthropathy. There is moderate to severe bilateral neural foraminal narrowing, worse on the right, severe constriction of the bilateral lateral recesses with encroachment of the bilateral L5 nerve roots. Severe spinal canal stenosis.. L5-S1: Postoperative changes compatible with posterior decompression, posterior and interbody fusion. Patent spinal canal and bilateral neuroforamina, given the limitation of artifacts from the hardware.. Indeterminate 1.7 cm T2 hypointense lesion involving the right kidney. IMPRESSION: 1. Severe degenerative changes at C4-C5, as described above. 2. Postoperative changes compatible with posterior decompression and posterior spinal fusion at L5-S1 in satisfactory alignment. Mild to moderate degenerative changes in the other levels of the lumbar spine. 3. Indeterminate 1.7 cm right renal lesion. Consider further evaluation with an MRI study. Final Dictated by: Javier Mg MD Dictated DT/TM: 08/16/2019 11:24 am Signed by: Javier Mg MD Signed (Electronic Signature): 08/16/2019 11:35 am (If Report Is Signed, Electronically Signed in Other Vendor System) Normal [facility] Encounters Encounter Date Encounter Type Care Provider Facility Start: 01-21-2023 ambulatory Facility:[facility] Start: 09-21-[address] PAPO MEZA Facility :[facility] Start: 08-27-2021 End: 08-28-[address] PAPO MEZA Facility:[facility] Start: 05-24-[address] PAPO MEZA Facility :[facility] Start: 04-02-[address] PAPO MEZA Facility :[facility] Start: 03-31-2021 End: 03-31-2021 Emergency department patient visit PAPO Damon DERRICK [facility] Start: 10-06-2019 Patient encounter procedure PAPO MEZA Facility:[facility] Start: 08-16-2019 End: 08-17-2019 Patient encounter procedure PAPO MEZA Facility:[facility] Procedures Date Procedure Procedure Detail Performing Clinician Start: 08-27-[address] PABLITO MEZA Comment on above: Performed By: #### P [facility] #### [facility] [address] [place] [address] Dr. Abdias Adkins Payers Date Payer Category Payer Unknown [id number] 2021 Unknown [id number] 2019 Unknown 1960 Unknown [id number] 2.16.8 [id number] 1960 Unknown [id number] 2.16.8 [id number] 1960 Unknown [id number] 2.16.8 [id number] 1960 Unknown [id number] 2.16.84 [id number] 1959 Unknown [id number] 2.16.84 [id number] 1960 Unknown [id number] 2.16.84 [id number] 1959 Unknown [id number] 2.16.84 [id number] 1959 Unknown [id number] 2.16.8 [id number] 1960 Self-pay [id number] Summary Purpose Family History No Family History Records FoundNo Family History Records FoundNo Family History Records FoundNo Family History Records Found Advance Directives No Advanced Directives Records FoundNo Advanced Directives Records FoundNo Advanced Directives Records FoundNo Advanced Directives Records Found Additional Source Comments (unrecognized sect ion and content) No Status Records FoundNo Status Records FoundNo Status Records FoundNo Status Records Found INFORMATION SOURCE (unrecogn ized section and content) DATE CREATED AUTHOR 11/25/2019 [facility] DATE CREATED AUTHOR AUTHOR'S ORGANIZ ATION 04/11/2021 [facility] DATE CREATED AUTHOR AUTHOR'S ORGANIZ ATION 10/22/2021 [facility] DATE CREATED AUTHOR AUTHOR'S ORGANIZ ATION 01/22/2023 [facility] FOR RECORDS PERTAINING TO PATIENTS WHO ARE OR HAVE BEEN ENROLLED IN A CHEMICAL DEPENDENCY/SUBSTANCEABUSE PROGRAM, SOME INFORMATION MAY BE OMITTED. This clinical summary was aggregated from multiple sources. Caution should be exercised in using it in the provision of clinical care. This summary normalizes information from multiple sources, and as a consequence, information in this document may materially change the coding, format and clinical context of patient data. In addition, data may be omitted in some cases. CLINICAL DECISIONS SHOULD BE BASED ON THE PRIMARY CLINICAL RECORDS. [facility]. provides no warranty or guarantee of the accuracy or completeness of information in this document.
--- NOTE | 2023-04-10 11:32 | XR_ITS ---
[facility] [place] [id number] Patient Name: ROBERT COX MRN: [id number] date: 1960 Sex: M Assigned Patient Location: RAD Current Patient Location: RAD Accession/Order Number: [id number] Exam Date: 04/10/2023 11:25 Report Date: 04/10/2023 13:31 At the request of: PAPO MEZA Procedure: XR shoulder RT min 2V PROCEDURE: XR shoulder RT min 2V COMPARISON: None. HISTORY: impingement of shoulder M25.819 FINDINGS: BONES:No acute fracture or dislocation. Moderate to severe osteoarthropathy of the glenohumeral joint with likely kcyt-jo-yorm articulation and marginal osteophyte formation and subchondral cystic changes. 2 focal areas of sclerosis project over the humeral head on image 3. Mild acromioclavicular joint osteoarthritis with 3 mm of subacromial spurring SOFT TISSUES:Negative. No visible soft tissue swelling. EFFUSION:None visible. OTHER: Negative. XR/XR shoulder RT min 2V IMPRESSION: Mild acromioclavicular joint osteoarthritis Severe glenohumeral joint osteoarthritis Electronically authenticated by: SKYE MCPHERSON Date: 04/10/2023 13:31
== END 2023-04-10 11:12 | disposition home or self-care (01) ==
LOC: RAD 11:13
PROVIDERS: PCP Family Medicine; Visit Provider Family Medicine
DX: M25.819 Other specified joint disorders, unspecified shoulder (principal); M19.011 Primary osteoarthritis, right shoulder
CPT/HCPCS: 73030

== ENCOUNTER 2023-12-05 11:16 | Outpatient (OUT) | payer BC, SELFPAY ==
--- OUTSIDE RECORDS SUMMARY | 2023-12-05 11:20 | XMS_ITS | CCD ---
Author Organization [facility]ini[facility] Care Team Providers Care Cell Inspector Name Role Phone PAPO MEZA Attending Unavailable [...] INSULINon 08-28-2021 Insulin 22.9 uIU/mL Normal 2.6-24.9 [facility] Comment on above: Performed By: #### I NSULIN #### [facility] [address] [address] [address] Abdias Adkins CBC AUTO DIFFon 08-27-2021 BASO # 0.0 103/ul Normal 0.0-0.1 [facility] Comment on above: Performed By: #### C BC #### [facility] [address] [address] [address] Abdias Adkins Basophils/100 WBC (Bld) 0.5 % Normal 0.2-2.0 [facility] Comment on above: Performed By: #### C BC #### [facility] [address] [place] [address] Dr. Abdias Adkins EO # 0.2 103/ul Normal 0.0-0.7 [facility] Comment on above: Performed By: #### C BC #### [facility] [address] [place] [address] Dr. Abdias Adkins Eosinophils/100 WBC (Bld) 2.1 % Normal 0.9-7.0 [facility] Comment on above: Performed By: #### C BC #### [facility] [address] [place] [address] Dr. Abdias Adkins Erythrocyte distribution width (RBC) [Ratio] 11.9 % Normal 11.0-15.0 [facility] Comment on above: Performed By: #### C BC #### [facility] [address] [place] [address] Dr. Abdias Adkins Hematocrit (Bld) [Volume fraction] 36.6 % Critically low 42.0-54.0 [facility] Comment on above: Performed By: #### C BC #### [facility] [address] [place] [address] Dr. Abdias Adkins Hemoglobin (Bld) [Mass/Vol] 12.8 g/dL Critically low 14.0-18.0 [facility] Comment on above: Performed By: #### C BC #### [facility] [address] [place] [address] Dr. Abdias Adkins IG # 0.04 10e3/ul Critically high 0.00-0.03 [facility] Comment on above: Performed By: #### C BC #### [facility] [address] [place] [address] Dr. Abdias Adkins IG % 0.5 % Normal 0.0-0.5 [facility] Comment on above: Performed By: #### C BC #### [facility] [address] [place] [address] Dr. Abdias Adkins LYMPH # 2.1 103/ul Normal 1.2-3.8 [facility] Comment on above: Performed By: #### C BC #### [facility] [address] [place] [address] Dr. Abdias Adkins Lymphocytes/100 WBC (Bld) 25.5 % Normal 20.5-60.0 [facility] Comment on above: Performed By: #### C BC #### [facility] [address] [place] [address] Dr. Abdias Adkins MANUAL DIFF REQ NO Normal [facility] Comment on above: Performed By: #### C BC #### [facility] [address] [place] [address] Dr. Abdias Adkins MCH (RBC) [Entitic mass] 30.8 pg Normal 25.9-34.0 [facility] Comment on above: Performed By: #### C BC #### [facility] [address] [place] [address] Dr. Abdias Adkins MCHC (RBC) [Mass/Vol] 35.0 g/dL Normal 29.9-35.2 [facility] Comment on above: Performed By: #### C BC #### [facility] [address] [place] [address] Dr. Abdias Adkins MCV (RBC) [Entitic vol] 88.0 fL Normal 80.0-94.0 [facility] Comment on above: Performed By: #### C BC #### [facility] [address] [address] [address] Abdias Adkins MONO # 0.4 103/ul Normal 0.3-0.8 [facility] Comment on above: Performed By: #### C BC #### [facility] [address] [place] [address] Dr. Abdias Adkins Monocytes/100 WBC (Bld) 4.9 % Normal 1.7-12.0 [facility] Comment on above: Performed By: #### C BC #### [facility] [address] [place] [address] Dr. Abdias Adkins NEUT # 5.5 103/ul Normal 1.4-6.5 [facility] Comment on above: Performed By: #### C BC #### [facility] [address] [place] [address] Dr. Abdias Adkins Neutrophils/100 WBC (Bld) 66.5 % Normal 43.0-75.0 [facility] Comment on above: Performed By: #### C BC #### [facility] [address] [place] [address] Dr. Abdias Adkins Platelet mean volume (Bld) [Entitic vol] 9.9 fL Normal 9.5-13.5 [facility] Comment on above: Performed By: #### C BC #### [facility] [address] [place] [address] Dr. Abdias Adkins PLT 200 103/ul Normal 150-450 [facility] Comment on above: Performed By: #### C BC #### [facility] [address] [place] [address] Dr. Abdias Adkins RBC 4.16 106/ul Critically low 4.70-6.10 [facility] Comment on above: Performed By: #### C BC #### [facility] [address] [place] [address] Dr. Abdias Adkins WBC 8.3 103/ul Normal 4.0-11.0 [facility] Comment on above: Performed By: #### C BC #### [facility] [address] [place] [address] Dr. Abdias Adkins FREE THYROXINE INDEX T7on FTI 2.04 Normal 1.30-4.50 [facility] Comment on above: Performed By: #### U SUNDEEP, T7, CMP, LIPID, TSH #### [facility] [address] [address] [address] Abdias Adkins T3U 34.0 % Normal 33.0-40.0 [facility] Comment on above: Performed By: #### U SUNDEEP, T7, CMP, LIPID, TSH #### [facility] [address] [address] [address] Abdias Adkins T4 [Mass/Vol] 6.00 ug/dL Normal 4.50-12.10 [facility] Comment on above: Performed By: #### U SUNDEEP, T7, CMP, LIPID, TSH #### [facility] [address] [address] [address] Abdias Adkins GLYCOHEMOGLOBIN A1Con 2021 ADA RECOMMENDATION SEE BELOW Normal [facility] Comment on above: Result Comment: ADA RECOMMENDED LIMIT 4.0 - 6.0 ADA THERAPEUTIC TARGET < 7.0 ACTION SUGGESTED > 7.0 Performed By: #### A 1C #### [facility] [address] [place] [address] Dr. Abdias Adkins Glucose [Mass/Vol] 189 mg/dL Normal [facility] Comment on above: Performed By: #### A 1C #### [facility] [address] [address] [address] Abdias Adkins HbA1c (Bld) [Mass fraction] 8.2 % Critically high 4.5-6.2 [facility] Comment on above: Performed By: #### A 1C #### [facility] [address] [address] [address] Abdias Adkins LIPID PROFILEon 08-27-2021 CHOL-HDL RATIO NORM SEE BELOW Normal [facility] Comment on above: Result Comment: 3.3 - 4.4 LOW RISK 4.4 - 7.1 AVERAGE RISK 7.1 - 11.0 MODERATE RISK >11.0 HIGH RISK Performed By: #### U SUNDEEP, T7, CMP, LIPID, TSH #### [facility] [address] [address] [address] Abdias Adkins Cholesterol [Mass/Vol] 214 mg/dL Critically high <=200 [facility] Comment on above: Performed By: #### U SUNDEEP, T7, CMP, LIPID, TSH #### [facility] [address] [address] [address] Abdias Adkins Cholesterol in HDL [Mass/Vol] 52 mg/dL Normal 40-60 [facility] Comment on above: Performed By: #### U SUNDEEP, T7, CMP, LIPID, TSH #### [facility] [address] [address] [address] Abdias Adkins Cholesterol in LDL [Mass/Vol] 148.4 mg/dL Normal [facility] Comment on above: Performed By: #### U SUNDEEP, T7, CMP, LIPID, TSH #### [facility] [address] [address] [address] Abdias Adkins Cholesterol.total/Cho lesterol in HDL [Mass ratio] 4.1 {ratio} Normal [facility] Comment on above: Performed By: #### U SUNDEEP, T7, CMP, LIPID, TSH #### [facility] [address] [address] [address] Abdias Adkins HDL NORMAL > or = 60 mg/dl - LOW CARDIOVASCULAR RISK <40 mg/dl - HIGH CARDIOVASCULAR RISK Normal [facility] Comment on above: Performed By: #### U SUNDEEP, T7, CMP, LIPID, TSH #### [facility] [address] [address] [address] Abdias Adkins LDL CALC NORMAL SEE BELOW Normal [facility] Comment on above: Result Comment: <100 mg/dl OPTIMAL 100 - 129 mg/dl NEAR OR ABOVE OPTIMAL 130 - 159 mg/dl BORDERLINE HIGH 160 - 189 mg/dl HIGH >190 mg/dl VERY HIGH Performed By: #### U SUNDEEP, T7, CMP, LIPID, TSH #### [facility] [address] [address] [address] Abdias Adkins Triglyceride [Mass/Vol] 68 mg/dL Normal <=150 [facility] Comment on above: Performed By: #### U SUNDEEP, T7, CMP, LIPID, TSH #### [facility] [address] [address] [address] Abdias Adkins VLDL CALC 13.6 mg/dL Normal [facility] Comment on above: Performed By: #### U SUNDEEP, T7, CMP, LIPID, TSH #### [facility] [address] [address] [address] Abdias Adkins OCC BLD IMMUNO SCREENon 08-15 OCCULT BLOOD Negative Normal NEGATIVE [facility] Comment on above: Performed By: #### O BSCRN #### [facility] [address] [address] [address] Abdias Adkins PROF 14(COMP METB)on 022 Albumin [Mass/Vol] 3.5 g/dL Normal 3.4-5.0 [facility] Comment on above: Performed By: #### U SUNDEEP, T7, CMP, LIPID, TSH #### [facility] [address] [place] [address] Dr. Abdias Adkins Albumin/Globulin [Mass ratio] 1.1 {ratio} Normal [facility] Comment on above: Performed By: #### U SUNDEEP, T7, CMP, LIPID, TSH #### [facility] [address] [place] [address] Dr. Abdias Adkins ALP [Catalytic activity/Vol] 103 U/L Normal 46-116 [facility] Comment on above: Performed By: #### U SUNDEEP, T7, CMP, LIPID, TSH #### [facility] [address] [address] [address] Abdias Adkins ALT [Catalytic activity/Vol] 25 U/L Normal 16-63 [facility] Comment on above: Performed By: #### U SUNDEEP, T7, CMP, LIPID, TSH #### [facility] [address] [address] [address] Abdias Adkins Anion gap [Moles/Vol] 12.5 mmol/L Normal [facility] Comment on above: Performed By: #### U SUNDEEP, T7, CMP, LIPID, TSH #### [facility] [address] [place] [address] Dr. Abdias Adkins AST [Catalytic activity/Vol] 13 U/L Critically low 15-37 [facility] Comment on above: Performed By: #### U SUNDEEP, T7, CMP, LIPID, TSH #### [facility] [address] [address] [address] Abdias Adkins Bilirubin [Mass/Vol] 0.4 mg/dL Normal 0.2-1.0 [facility] Comment on above: Performed By: #### U SUNDEEP, T7, CMP, LIPID, TSH #### [facility] [address] [address] [address] Abdias Adkins Calcium [Mass/Vol] 8.6 mg/dL Normal 8.5-10.1 [facility] Comment on above: Performed By: #### U SUNDEEP, T7, CMP, LIPID, TSH #### [facility] [address] [place] [address] Dr. Abdias Adkins Chloride [Moles/Vol] 102 mmol/L Normal 98-107 [facility] Comment on above: Performed By: #### U SUNDEEP, T7, CMP, LIPID, TSH #### [facility] [address] [address] [address] Abdias Adkins CO2 [Moles/Vol] 27.3 mmol/L Normal 21.0-32.0 [facility] Comment on above: Performed By: #### U SUNDEEP, T7, CMP, LIPID, TSH #### [facility] [address] [address] [address] Abdias Adkins Creatinine [Mass/Vol] 1.03 mg/dL Normal 0.70-1.30 [facility] Comment on above: Performed By: #### U SUNDEEP, T7, CMP, LIPID, TSH #### [facility] [address] [address] [address] Abdias Adkins EGFR-AF MEXICAN >60 Normal >=60 [facility] Comment on above: Performed By: #### U SUNDEEP, T7, CMP, LIPID, TSH #### [facility] [address] [address] [address] Abdias Adkins EGFR-NON AF MEXICAN >60 Normal >=60 [facility] Comment on above: Performed By: #### U SUNDEEP, T7, CMP, LIPID, TSH #### [facility] [address] [address] [address] Abdias Adkins Globulin (S) [Mass/Vol] 3.3 g/dL Normal [facility] Comment on above: Performed By: #### U SUNDEEP, T7, CMP, LIPID, TSH #### [facility] [address] [address] [address] Abdias Adkins Glucose [Mass/Vol] 254 mg/dL Critically high 74-106 T [facility] Comment on above: Performed By: #### U SUNDEEP, T7, CMP, LIPID, TSH #### [facility] [address] [place] [address] Dr. Abdias Adkins Potassium [Moles/Vol] 4.8 mmol/L Normal 3.5-5.1 [facility] Comment on above: Performed By: #### U SUNDEEP, T7, CMP, LIPID, TSH #### [facility] [address] [address] [address] Abdias Adkins Protein [Mass/Vol] 6.8 g/dL Normal 6.4-8.2 [facility] Comment on above: Performed By: #### U SUNDEEP, T7, CMP, LIPID, TSH #### [facility] [address] [place] [address] Dr. Abdias Adkins Sodium [Moles/Vol] 137 mmol/L Normal 136-145 [facility] Comment on above: Performed By: #### U SUNDEEP, T7, CMP, LIPID, TSH #### [facility] [address] [place] [address] Dr. Abdias Adkins Urea nitrogen [Mass/Vol] 29.0 mg/dL Critically high 7.0-18.0 [facility] Comment on above: Performed By: #### U SUNDEEP, T7, CMP, LIPID, TSH #### [facility] [address] [place] [address] Dr. Abdias Adkins Urea nitrogen/Creatinine [Mass ratio] 28.2 mg/mg Normal [facility] Comment on above: Performed By: #### U SUNDEEP, T7, CMP, LIPID, TSH #### [facility] [address] [address] [address] Abdias Adkins TSHon 08-27-2021 TSH 1.506 uIU/mL Normal 0.358-3.740 [facility] Comment on above: Performed By: #### U SUNDEEP, T7, CMP, LIPID, TSH #### [facility] [address] [address] [address] Abdias Adkins TSH RANGE SEE BELOW Normal [facility] Comment on above: Result Comment: <0.3 4 UIU/ml HYPERTHYROID 0.34-5.60 UIU/ml EUTHYROID >5.60 UIU/ml HYPOTHYROID Performed By: #### U SUNDEEP, T7, CMP, LIPID, TSH #### [facility] [address] [address] [address] Abdias Adkins URIC ACID SERUMon 08-27-2021 Urate [Mass/Vol] 5.0 mg/dL Normal 3.5-7.2 [facility] Comment on above: Performed By: #### U SUNDEEP, T7, CMP, LIPID, TSH #### [facility] [address] [address] [address] Abdias Adkins CBC with Diffon 03-31-2021 Abs. Basophil <0.03 Normal 0.00-0.20 [facility] Comment on above: Performed By: #### C DP, CP, TROPI #### [facility] [address] [place] [address] [employer] Officer: Donal Almonte MD Abs.Imm.Granulocyte <0.03 Normal 0.00-0.30 [facility] Comment on above: Performed By: #### C DP, CP, TROPI #### [facility] [address] [place] [address] [employer] Officer: Donal Almonte MD Abs.Neutrophil (Seg) 3.84 k/uL Normal 1.50-8.10 [facility] Comment on above: Performed By: #### C DP, CP, TROPI #### [address] [place], [facility]83 [employer] Officer: Donal Almonte MD Basophils/100 WBC (Bld) 0 % Normal 0-2 [facility] Comment on above: Performed By: #### C DP, CP, TROPI #### [address] [place], [facility]83 [employer] Officer: Donal Almonte MD Eosinophils (Bld) [#/Vol] 0.12 10*3/uL Normal 0.00-0.44 [facility] Comment on above: Performed By: #### C DP, CP, TROPI #### [address] [place], [facility]83 [employer] Officer: Donal Almonte MD Eosinophils/100 WBC (Bld) 2 % Normal 1-4 [facility] Comment on above: Performed By: #### C DP, CP, TROPI #### [address] [place], [place] [address] [employer] Officer: Donal Almonte MD Erythrocyte distribution width (RBC) [Ratio] 11.6 % Low 11.8-14.4 [facility] Comment on above: Performed By: #### C DP, CP, TROPI #### [address] [place], [facility]83 [employer] Officer: Donal Almonte MD Hematocrit (Bld) [Volume fraction] 42.9 % Normal 40.7-50.3 [facility] Comment on above: Performed By: #### C DP, CP, TROPI #### [address] [place], [facility]83 [employer] Officer: Donal Almonte MD Hemoglobin (Bld) [Mass/Vol] 14.8 g/dL Normal 13.0-17.0 [facility] Comment on above: Performed By: #### C DP, CP, TROPI #### [address] [place], [place] [address] [employer] Officer: Donal Almonte MD Immature granulocytes/100 WBC (Bld) 0 % Normal 0 [facility] Comment on above: Performed By: #### C DP CP, TROPI #### [address] [place], [facility]83 [employer] Officer: Donal Almonte MD Lymphocytes (Bld) [#/Vol] 1.20 10*3/uL Normal 1.10-3.70 [facility] Comment on above: Performed By: #### C DP, CP, TROPI #### [address] [place] [address] [employer] Officer: Donal Almonte MD Lymphocytes/100 WBC (Bld) 21 % Low 24-43 [facility] Comment on above: Performed By: #### C GARFIELD CP, TROPI #### [address] [place] [address] [employer] Officer: Donal Almonte MD MCH (RBC) [Entitic mass] 30.3 pg Normal 25.2-33.5 [facility] Comment on above: Performed By: #### C GARFIELD CP, TROPI #### [address] [place] [id number] [employer] Officer: Donal Almonte MD MCHC (RBC) [Mass/Vol] 34.5 g/dL Normal 28.4-34.8 [facility] Comment on above: Performed By: #### C DP CP, TROPI #### [address] [place] [id number] [employer] Officer: Donal Almonte MD MCV (RBC) [Entitic vol] 87.9 fL Normal 82.6-102.9 [facility] Comment on above: Performed By: #### C DP, CP, TROPI #### [address] [place] [id number] [employer] Patrol Officer: Donal Almonte MD Monocytes (Bld) [#/Vol] 0.43 10*3/uL Normal 0.10-1.20 [facility] Comment on above: Performed By: #### C DP, CP, TROPI #### [facility] [address] [place] [address] [employer] Officer: Donal Almonte MD Monocytes/100 WBC (Bld) 8 % Normal 3-12 [facility] Comment on above: Performed By: #### C DP, CP, TROPI #### [facility] [address] [place], [place] [address] [employer] Officer: Donal Almonte MD Neutrophil (Seg) 69 % High 36-65 [facility] Comment on above: Performed By: #### C DP, CP, TROPI #### [address] [place], [place] [address] [employer] Officer: Donal Almonte MD NRBC Automated 0.0 per 100 WBC Normal 0.0 [facility] Comment on above: Performed By: #### C DP, CP, TROPI #### [address] [place], [facility]83 [employer] Officer: Donal Almonte MD Platelet mean volume (Bld) [Entitic vol] 9.9 fL Normal 8.1-13.5 [facility] Comment on above: Performed By: #### C DP, CP, TROPI #### [facility] [address] [place] [address] Dr. [place], [facility]83 [employer] Officer: Donal Almonte MD Platelets (Bld) [#/Vol] 232 10*3/uL Normal 138-453 [facility] Comment on above: Performed By: #### C DP, CP, TROPI #### [address] [place], [place] [id number] [employer] Officer: Donal Almonte MD RBC (Bld) [#/Vol] 4.88 10*6/uL Normal 4.21-5.77 [facility] Comment on above: Performed By: #### C DP, CP, TROPI #### [facility] [address] [place], [place] [id number] [employer] Officer: Donal Almonte MD WBC (Bld) [#/Vol] 5.6 10*3/uL Normal 3.5-11.3 [facility] Comment on above: Performed By: #### C DP, CP, TROPI #### [address] [place], [place] [id number] [employer] Officer: Donal Almonte MD Auto Diff Performed NOT REPORTED Normal [facility] Comment on above: Performed By: #### C DP, CP, TROPI #### [address] [place], [place] [id number] [employer] Officer: Donal Almonte MD Platelet Comment NOT REPORTED Normal [facility] Comment on above: Performed By: #### C DP, CP, TROPI #### [address] [place] [address] [employer] Officer: Donal Almonte MD RBC morphology finding Nom (Bld) NOT REPORTED Normal [facility] Comment on above: Performed By: #### C DP, CP, TROPI #### [address] [place] [address] [employer] Officer: Donal Almonte MD WBC Morphology NOT REPORTED Normal [facility] Comment on above: Performed By: #### C DP, CP, TROPI #### [address] [place], [place] [id number] [employer] Patrol Officer: Donal Almonte MD CT CHEST ABDOMEN PELVIS [...] Juice Winter MD 03/31/21 Final result Normal [facility] Comp Metabolic Profon 2021 AST [Catalytic activity/Vol] 33 U/L Normal <40 [facility] Comment on above: Performed By: #### C DP, TERRY, TROPI #### [facility] [address] [place] [address] [employer] Officer: Donal Almonte MD (cont.) Normal [facility] Comment on above: Result Comment: Aver age GFR for 60-69 years old: 85 mL/min/1.73sq m Chronic Kidney Disease: <60 mL/min/1.73sq m Kidney failure: <15 mL/min/1.73sq m eGFR calculated using average adult body mass. Additional eGFR calculator available at: http://www.[employer]/multiple_crcl_2012.htm Performed By: #### C DP, CP, TROPI #### [facility] [address] [place] [address] [employer] Officer: Donal Almonte MD Albumin [Mass/Vol] 4.0 g/dL Normal 3.5-5.2 [facility] Comment on above: Performed By: #### C DP, CP, TROPI #### [address] [place] [address] [employer] Officer: Donal Almonte MD Albumin/Glob Ratio 1.2 Normal 1.0-2.5 [facility] Comment on above: Performed By: #### C DP, CP, TROPI #### [facility] [address] [place] [address] Mobile Patrol Officer: Donal Almonte MD Alkaline Phos 92 U/L Normal 40-129 [facility] Comment on above: Performed By: #### C DP, CP, TROPI #### [facility] [address] [place] [address] Mobile Patrol Officer: Donal Almonte MD ALT [Catalytic activity/Vol] 25 U/L Normal 5-41 [facility] Comment on above: Performed By: #### C DP, CP, TROPI #### [facility] [address] [place] [address] [employer] Patrol Officer: Donal Almonte MD Anion gap [Moles/Vol] 15 mmol/L Normal 9-17 [facility] Comment on above: Performed By: #### C DP, CP, TROPI #### [address] [place] [address] Mobile Patrol Officer: Donal Almonte MD Bilirubin [Mass/Vol] 0.28 mg/dL Low 0.3-1.2 [facility] Comment on above: Performed By: #### C DP, CP, TROPI #### [facility] [address] [place], [place] [phone] Mobile Patrol Officer: Donal Almonte MD BUN/CRE Ratio 16 Normal 9-20 [facility] Comment on above: Performed By: #### C DP, CP, TROPI #### [facility] [address] [place] [address] Mobile Patrol Officer: Donal Almonte MD Calcium [Mass/Vol] 9.1 mg/dL Normal 8.6-10.4 [facility] Comment on above: Performed By: #### C DP, CP, TROPI #### [facility] [address] [place], [place] [phone] [employer] Patrol Officer: Donal Almonte MD Chloride [Moles/Vol] 97 mmol/L Low 98-107 [facility] Comment on above: Performed By: #### C DP, CP, TROPI #### [facility] [address] [place] [address] [address] [place], [place] [phone] [employer] Patrol Officer: Donal Almonte MD CO2 [Moles/Vol] 22 mmol/L Normal 20-31 [facility] Comment on above: Performed By: #### C DP, CP, TROPI #### [facility] [address] [place] [address] Dr[address] [place], [place] [phone] [employer] Patrol Officer: Donal Almonte MD Creatinine [Mass/Vol] 1.35 mg/dL High 0.70-1.20 [facility] Comment on above: Performed By: #### C DP, CP, TROPI #### [facility] [address] [place], [place] [phone] [employer] Patrol Officer: Donal Almonte MD GFR, Amer >60 Normal >60 [facility] Comment on above: Performed By: #### C DP, CP, TROPI #### [facility] [address] [place], [place] [phone] Mobile Patrol Officer: Donal Almonte MD GFR,non Amer 54 mL/min Low >60 [facility] Comment on above: Performed By: #### C DP, CP, TROPI #### [facility] [address] [place], [place] [phone] Mobile Patrol Officer: Donal Almonte MD Glucose [Mass/Vol] 308 mg/dL High 70-99 [facility] Comment on above: Performed By: #### C DP, CP, TROPI #### [address] [place], [place] [phone] [employer] Patrol Officer: Donal Almonte MD Potassium [Moles/Vol] 4.3 mmol/L Normal 3.7-5.3 [facility] Comment on above: Performed By: #### C DP, CP, TROPI #### [address] [place], [place] [phone] Mobile Patrol Officer: Donal Almonte MD Protein [Mass/Vol] 7.4 g/dL Normal 6.4-8.3 [facility] Comment on above: Performed By: #### C DP, CP, TROPI #### [facility] [address] [place] [address] [address] [place], [place] [phone] Mobile Patrol Officer: Donal Almonte MD Sodium [Moles/Vol] 134 mmol/L Low 135-144 [facility] Comment on above: Performed By: #### C DP, CP, TROPI #### [facility] [address] [place] [address] [address] [place], [place] [phone] [employer] Patrol Officer: Donal Almonte MD Staging: Normal [facility] Comment on above: Result Comment: Stag e 1: Some kidney damage normal GFR Stage 2: Mild kidney damage GFR 60-89 Stage 3: Moderate kidney damage GFR 30-59 Stage 4: Severe kidney damage GFR 15-29 Stage 5: Severe kidney damage GFR <15 ESRD - chronic treatment by dialysis or transplant Performed By: #### C TERRY MERRILL, TROPI #### [facility] [address] [place] [address] [place] [address] [employer] Patrol Officer: Donal Almonte MD Urea nitrogen [Mass/Vol] 22 mg/dL Normal 8-23 [facility] Comment on above: Performed By: #### C TERRY MERRILL, TROPI #### [facility] [address] [place], [place] [phone] [employer] Patrol Officer: Donal Almonte MD Lactic Acidon 03-31-2021 Lactate [Moles/Vol] 2.1 mmol/L Normal 0.5-2.2 [facility] Comment on above: Performed By: #### L ACTIC #### [address] [place], [place] [phone] Mobile Patrol Officer: Dnoal Almonte MD Lactic Acid,Whole Bl NOT REPORTED Normal 0.7-2.1 [facility] Comment on above: Performed By: #### L ACTIC #### [address] [place], [place] [phone] Mobile Patrol Officer: Donal Almonte MD [id number] 03-31-2021 SARS-CoV-2 (COVID-19) RNA ROZ+probe Ql (Unsp spec) Detected Abnormal NOTDET [facility] Comment on above: Result Comment: Rapid NAAT: [...] this assay. Fact sheet for Healthcare Providers: https://www.fda.gov/media/416799/download Fact sheet for Patients: https://www.fda.gov/media/981484/download Methodology: Isothermal Nucleic Acid Amplification Results reported to the appropriate Health Department Performed By: #### C OVRB #### [facility] [address] [place], [place] [phone] Mobile Patrol Officer: Donal Almonte MD Troponinon 03-31-2021 Troponin, High Sens 32 ng/L High 0-22 [facility] Comment on above: Result Comment: High Sensitivity Troponin values cannot be compared with other Troponin methodologies. Patients with high levels of Biotin oral intake (i.e >5mg/day) may have falsely decreased Troponin levels. Samples collected within 8 hours of biotin intake may require additional information for diagnosis. Performed By: #### T ROPI #### [facility] [address] [place], [place] [phone] Mobile Patrol Officer: Donal Almonte MD Troponin Interp. NOT REPORTED Normal [facility] Comment on above: Performed By: #### T ROPI #### [facility] [address] [place], [place] [phone] Mobile Patrol Officer: Donal Almonte MD Troponin T NOT REPORTED Normal <0.03 [facility] Comment on above: Performed By: #### T ROPI #### [facility] [address] [place], [place] [phone] Mobile Patrol Officer: Donal Almonte MD Troponin, High Sens 35 ng/L [facility] 0-22 [facility] Comment on above: Result Comment: High Sensitivity Troponin values cannot be compared with other Troponin methodologies. Patients with high levels of Biotin oral intake (i.e >5mg/day) may have falsely decreased Troponin levels. Samples collected within 8 hours of biotin intake may require additional information for diagnosis. Performed By: #### C DP, CP, TROPI #### [facility] [address] [place] [address] Mobile Patrol Officer: Donal Almonte MD Troponin Interp. NOT REPORTED Normal [facility] Comment on above: Performed By: #### C DP, CP, TROPI #### [facility] [address] [place], [place] [phone] Mobile Patrol Officer: Donal Almonte MD Troponin T NOT REPORTED Normal <0.03 [facility] Comment on above: Performed By: #### C DP, CP, TROPI #### [facility] [address] [place], [place] [phone] Mobile Patrol Officer: Donal Almonte MD Urinalysis w/ Microon 2021 ----- Normal [facility] Comment on above: Performed By: #### U AMIC #### [address] [place], [place] [phone] Mobile Patrol Officer: Donal Almonte MD Bilirubin, SemiQt,Ur Negative Normal NEG [facility] Comment on above: Performed By: #### U AMIC #### [facility] [address] [place], [place] [phone] [employer] Patrol Officer: Donal Almonte MD Blood, Urine Negative Normal NEG [facility] Comment on above: Performed By: #### U AMIC #### [facility] [address] [place], [place] [phone] Mobile Patrol Officer: Donal Almonte MD Clarity (U) Clear Normal CLEAR [facility] Comment on above: Performed By: #### U AMIC #### [facility] [address] [place], [place] [phone] [employer] Patrol Officer: Donal Almonte MD Color (U) Yellow Normal YEL [facility] Comment on above: Performed By: #### U AMIC #### [facility] [address] [place], [place] [phone] Mobile Patrol Officer: Donal Almonte MD Epithelial cells LM Ql (Urine sed) 2 TO 5 Normal 0-5 [facility] Comment on above: Performed By: #### U AMIC #### [facility] [address] [place] [address] Dr. [place], [place] [phone] [employer] Patrol Officer: Donal Almonte MD Glucose Ql (U) Negative Normal NEG [facility] Comment on above: Performed By: #### U AMIC #### [facility] [address] [place] [address] Dr[address] [place], [place] [phone] [employer] Patrol Officer: Donal Almonte MD Ketones Ql (U) Negative Normal NEG [facility] Comment on above: Performed By: #### U AMIC #### [address] [place], [place] [phone] [employer] Patrol Officer: Donal Almonte MD Leukocyte esterase Test strip Ql (U) Negative Normal NEG [facility] Comment on above: Performed By: #### U AMIC #### [facility] [address] [place] [address] Dr. [place], [place] [phone] [employer] Patrol Officer: Donal Almonte MD Nitrite,Ur Negative Normal NEG [facility] Comment on above: Performed By: #### U AMIC #### [facility] [address] [place] [address] Dr. [place], [place] 1565383 Mobile Patrol Officer: Donal Almonte MD PH,Ur 5.0 Normal 5.0-9.0 [facility] Comment on above: Performed By: #### U AMIC #### [facility] [address] [place] [address] Dr[address] [place], [place] 6104983 [employer] Patrol Officer: Donal Almonte MD Protein Ql (U) Negative Normal NEG [facility] Comment on above: Performed By: #### U AMIC #### [address] [place], [place] 0670483 Mobile Patrol Officer: Donal Almonte MD Spec. Dodge,Ur 1.015 Normal 1.010-1.020 [facility] Comment on above: Performed By: #### U AMIC #### [facility] [address] [place] [address] Dr. [place], [place] 9671083 [employer] Patrol Officer: Donal Almonte MD Urine RBC's None Normal 0-2 [facility] Comment on above: Performed By: #### U AMIC #### [facility] [address] [place], [place] [phone] [employer] Patrol Officer: Donal Almonte MD Urine WBC's 0 TO 2 Normal 0-5 [facility] Comment on above: Performed By: #### U AMIC #### [facility] [address] [place], [place] 1090983 [employer] Patrol Officer: Donal Almonte MD Urobilinogen,Ur Normal Normal NORM [facility] Comment on above: Performed By: #### U AMIC #### [facility] [address] [place], [place] [phone] [employer] Patrol Officer: Donal Almonte MD Amorphous sediment LM Ql (Urine sed) NOT REPORTED Normal [facility] Comment on above: Performed By: #### U AMIC #### [facility] [address] [place], [place] [phone] [employer] Patrol Officer: Donal Almonte MD Bacteria NOT REPORTED Normal [facility] Comment on above: Performed By: #### U AMIC #### [facility] [address] [place] [address] Dr. [place], [place] [phone] [employer] Patrol Officer: Donal Almonte MD Casts NOT REPORTED Normal [facility] Comment on above: Performed By: #### U AMIC #### [facility] [address] [place], [place] [phone] [employer] Patrol Officer: Donal Almonte MD Comment NOT REPORTED Normal [facility] Comment on above: Performed By: #### U AMIC #### [facility] [address] [place], [place] [phone] Mobile Patrol Officer: Donal Almonte MD Crystals LM Nom (Urine sed) NOT REPORTED Normal [facility] Comment on above: Performed By: #### U AMIC #### [facility] [address] [place], [place] [phone] [employer] Patrol Officer: Donal Almonte MD Epithelial, Renal NOT REPORTED Normal 0 [facility] Comment on above: Performed By: #### U AMIC #### [facility] [address] [place], [place] [phone] [employer] Patrol Officer: Donal Almonte MD Mucus Strands NOT REPORTED Normal NONE [facility] Comment on above: Performed By: #### U AMIC #### [facility] [address] [place], [place] [phone] Mobile Patrol Officer: Donal Almonte MD Other Observations NOT REPORTED Normal NREQ [facility] Comment on above: Performed By: #### U AMIC #### [facility] [address] [place] [address] [employer] Patrol Officer: Donal Almonte MD Trichomonas NOT REPORTED Normal NONE [facility] Comment on above: Performed By: #### U AMIC #### [facility] [address] [place], [place] [phone] Mobile Patrol Officer: Donal Almonte MD Yeast NOT REPORTED Normal NONE [facility] Comment on above: Performed By: #### U AMIC #### [facility] [address] [place], [facility] Mobile Patrol Officer: Donal Almonte MD MRI Spine Lumbar w/o [...] with an MRI study. Addendum Dictated by: Haritha PINEDA, Javier Dictated DT/TM: 08/17/2019 4:07 pm Signed by: [...] Electronically Signed in Other Vendor System) Normal [facility] Encounters Encounter Date Encounter Type Care Provider Facility Start: 01-21-2023 ambulatory Facility:[facility] Start: 09-21-[address] PAPO MEZA Facility :[facility] Start: 08-27-2021 End: 08-28-[address] PAPO MEZA Facility:[facility] Start: 05-24-[address] PAPO MEZA Facility :[facility] Start: 04-02-[address] PAPO MEZA Facility :[facility] Start: 03-31-2021 End: 03-31-2021 Emergency department patient visit PAPO Damon YAZMINPablo [facility] Start: 10-06-2019 Patient encounter procedure PAPO MEZA Facility:[facility] Start: 08-16-2019 End: 08-17-2019 Patient encounter procedure PAPO ALYSSA DERRICK Facility:[facility] Procedures Date Procedure Procedure Detail Performing Clinician Start: 08-27-[address] PABLITO MEZA Comment on above: Performed By: #### P [facility] #### [facility] [address] [place] [address] Dr. Abdias Adkins Payers Date Payer Category Payer Unknown [id number] 2021 Unknown [id number] 2019 Unknown 1960 Unknown [id number] 2.16.8 [id number] 1960 Unknown [id number] 2.16.8 [id number] 1960 Unknown [id number] 2.16.8 [id number] 1960 Unknown [id number] 2.16.84 [id number] 1960 Unknown [id number] 2.16.84 [id number] 1959 Unknown [id number] 2.16.84 [id number] 1959 Unknown [id number] 2.16.84 [id number] 1959 Unknown [id number] 2.16.8 [id number] 1960 Self-pay [id number] Summary Purpose Family History No Family History [...] section and content) DATE CREATED AUTHOR 11/25/2019 [facility] DATE CREATED AUTHOR AUTHOR'S ORGANIZ ATION 04/11/2021 [facility] DATE CREATED AUTHOR AUTHOR'S ORGANIZ ATION 10/22/2021 [facility] DATE CREATED AUTHOR AUTHOR'S ORGANIZ ATION 01/22/2023 [facility] FOR RECORDS PERTAINING TO PATIENTS WHO ARE [...] BE BASED ON THE PRIMARY CLINICAL RECORDS. [facility] [employer] [facility]. provides no warranty or guarantee of the accuracy or completeness of information in this document.
[2023-12-05 11:38] LABS: Basophils Absolute Auto 0.1 10^3/uL (0.0-0.1); Basophils Percent Auto 0.7 % (0.2-2.0); Eosinophils Absolute Auto 0.2 10^3/uL (0.0-0.7); Eosinophils Percent Auto 2.7 % (0.9-7.0); Hematocrit 36.6 % (42.0-54.0); Hemoglobin 12.7 g/dL (14.0-18.0); Immature Granulocytes Abs Auto 0.02 10^3/uL (0.00-0.03); Immature Granulocytes Pct Auto 0.3 % (0.0-0.5); Lymphocytes Absolute Auto 1.8 10^3/uL (1.2-3.8); Lymphocytes Percent Auto 23.3 % (20.5-60.0); Mean Corpuscular HGB Conc 34.7 g/dL (29.9-35.2); Mean Corpuscular Hemoglobin 31.5 pg (25.9-34.0); Mean Corpuscular Volume 90.8 fL (80.0-94.0); Mean Platelet Volume 9.7 fL (9.5-13.5); Monocytes Absolute Auto 0.5 10^3/uL (0.3-0.8); Monocytes Percent Auto 6.2 % (1.7-12.0); Neutrophils Absolute Auto 5.1 10^3/uL (1.4-6.5); Neutrophils Percent Auto 66.8 % (43.0-75.0); Platelet Count 222 10^3/uL (150-450); Red Blood Count 4.03 10^6/uL (4.70-6.10); Red Cell Distribution Width 11.9 % (11.0-15.0); White Blood Count 7.6 10^3/uL (4.0-11.0)
[2023-12-05 12:06] LABS: Estimated Average Glucose 169 mg/dL; Glycohemoglobin A1C 7.5 % (4.5-6.2)
[2023-12-05 13:21] LABS: Alanine Aminotransferase 31 U/L (16-63); Albumin Globulin Ratio 1.2; Albumin Level 3.7 g/dL (3.4-5.0); Alkaline Phosphatase 96 U/L (46-116); Anion Gap 9.8; Aspartate Amino Transferase 24 U/L (15-37); BUN Creatinine Ratio 21.6; Bilirubin Total 0.5 mg/dL (0.2-1.0); Calcium 9.1 mg/dL (8.5-10.1); Carbon Dioxide 29.7 mmol/L (21.0-32.0); Chloride 103 mmol/L (98-107); Chol HDL Ratio 3.6; Cholesterol 173 mg/dL (<=200); Estimated GFR (African America >60 (>=60); Estimated GFR (Non-African Ame >60 (>=60); Free T3 1.78 pg/mL (2.18-3.98); Globulin 3.2 g/dL; Glucose 163 mg/dL (74-106); HDL Cholesterol 48 mg/dL (40-60); LDL Cholesterol Calculated 102.8 mg/dL; Potassium 4.5 mmol/L (3.5-5.1); Sodium 138 mmol/L (136-145); Thyroid Stimulating Hormone 2.085 uIU/mL (0.358-3.740); Total Protein 6.9 g/dL (6.4-8.2); Triglycerides 111 mg/dL (<=150); VLDL CHOLESTEROL 22.2 mg/dL
[2023-12-05 13:41] LABS: Prostate Specific Antigen Scrn 2.33 ng/mL (<=4.00)
== END 2023-12-05 11:17 | disposition home or self-care (01) ==
PROVIDERS: PCP Family Medicine; Visit Provider Family Medicine
DX: Z00.00 Encounter for general adult medical examination without abnormal findings (principal); E78.5 Hyperlipidemia, unspecified; R53.83 Other fatigue; R73.09 Other abnormal glucose; I10 Essential (primary) hypertension; E03.9 Hypothyroidism, unspecified; Z12.5 Encounter for screening for malignant neoplasm of prostate
CPT/HCPCS: 36415; 80053; 80061; 83036; 84436; 84443; 84481; 85025; G0103

== ENCOUNTER 2024-01-05 08:28 | Outpatient (OUT) | payer BC, SELFPAY ==
--- NOTE | 2024-01-05 | PCN_ITS ---
CARDIAC STRESS TEST Requesting Physician: Nathan Heard M.D. Procedure Date: 01/05/2024 TREADMILL STRESS TEST INDICATIONS FOR THE TEST: Chest pain. The test was discussed with the patient and he was agreeable to proceed. Patient exercised according to standard Kyle protocol, achieving 6 minutes and 42 seconds, equal to 9.10 METS. Exercise was terminated secondary to achievement of target heart and muscle fatigue. The patient had dyspnea which resolved during recovery. He did not experience any chest pain. Resting heart rate 57 beats per minute. Resting blood pressure 148/86. Peak heart rate 139 beats per minute, which represents 89% of age predicted maximum heart rate. Peak blood pressure 220/96 mm/Hg. Resting EKG showed sinus bradycardia, heart rate 58 beats per minute, inverted T-waves in leads 1, AVL and leads V4 and V5. EKG during exercise and at peak exercise was mild, less than [address] depression in leads V5 and V6, resolved towards the end of recovery. Few isolated PVCs were noted. CONCLUSION: 1. Maximal stress test, achieving 89% of age predicted maximum heart rate. 2. Hypertensive response to exercise. 3. Abnormal resting EKG showing T-wave abnormality. 4. This stress test is negative for exercise induced ischemic symptoms, EKG changes or arrhythmias. 5. The nuclear perfusion images result will be reported separately by Radiology. JANELLE
--- NOTE | 2024-01-05 | NM_ITS ---
Patient Name: ROBERT COX MR#: [id number] : 1960 Exam Date: 01/05/2024 Ordering Doctor: DR Nathan Heard . RADIOLOGY REPORT PROCEDURE: NM MONE PERF SPECT REST STR COMPARISON: None. INDICATIONS: CHEST PAIN TECHNIQUE: Exam Description: Stress/Rest one day protocol gated SPECT Rest Imagin.2 mCi Tc-99m Cardiolite IV on 01/05/2024 Stress Imaging 30.4 mCi Tc-99m Cardiolite IV on 01/05/2024 Exercise Protocol: Kyle Heart Rate (bpm): Rest: 57 Max: 139 PMHR: 89 Blood Pressure: Rest: 148/86 Max: 220/96 Exercise Time: Minutes: 6 Seconds: 42 Stage Reached: Stage: 3 Mets 9.10 Symptoms: Rest and peak stress ECG findings were normal and the exercise portion of the study was normal per attending physician Dr. Tsang. For more details please see separate cardiac stress test report. FINDINGS: QUALITY OF STUDY: Good. PERFUSION DEFECT: None. LOCATION: N/A SIZE: N/A. SEVERITY: N/A. TYPE: N/A. WALL MOTION: Normal. LV SIZE: Enlarged; EDV 151 mL. TID / TCD: None; 1.0 LVEF: Normal. Calculated EF 55%. SUMMARY: Myocardial perfusion imaging study has ABNORMAL findings. CONCLUSION: 1. Dilated left ventricle, end-diastolic volume 151 milliliters 2. Left ventricular ejection fraction is borderline at 50 5% 3. No perfusion abnormality 4. Normal exercise test Dictated by: Donal Mccray MD on 01/05/2024 at 14:57 Approved by: Donal Mccray MD on 01/05/2024 at 15:00
--- NOTE | 2024-01-05 08:22 | CA_ITS ---
Patient Name: ROBERT COX MR#: [id number] : 1960 Exam Date: 01/05/2024 Ordering Doctor: DR Nathan Heard . ECHOCARDIOGRAM REPORT PROCEDURE: CA ECHO DOPPLER COMPLETE INDICATIONS: Chest pain COMPARISON: None. DESCRIPTION: COMPLETE ECHOCARDIOGRAM Real-time transthoracic echocardiography with 2D, M-mode, spectral and color flow Doppler performed. QUALITY: Technical quality was good. LEFT VENTRICLE: Normal chamber size. Mild concentric left ventricular hypertrophy. Global left ventricular systolic function is normal. No wall motion abnormalities. Calculated left ventricular ejection fraction is 63%. LV EF: Indeterminate diastolic function DIASTOLIC: ATRIAL SEPTUM: Appears intact LEFT ATRIUM: Mild dilatation. RIGHT ATRIUM: Mild dilatation. RIGHT VENTRICLE: Normal chamber size. Normal right ventricular systolic function. TRICUSPID VALVE: Normal mobility and thickness. No stenosis with trivial regurgitation. No evidence of pulmonary hypertension.RVSP 25mmHg MITRAL VALVE: Mildly thickened with normal mobility. No evidence of mitral valve stenosis. Mild mitral annular calcification. Trivial mitral regurgitation. GIB 3.5 AORTIC VALVE: Normal trileaflet appearance. Mildly calcified aortic valve. No aortic valve stenosis.No aortic regurgitation. Dilatation of AORTIC ROOT: Normal diameter and appearance. Normal ascending aorta PULMONIC VALVE: Normal thickness and mobility. No stenosis. No regurgitation. PERICARDIUM: No evidence of pericardial effusion. IVC: Collapes with inspirations. Normal size 2.1cm PLEURA: CONCLUSION: Normal left ventricle systolic function without wall motion abnormalities, ejection fraction 60% Mild concentric left ventricle hypertrophy Mild mitral annulus calcification Trace tricuspid regurgitation No evidence of pulmonary hypertension Adult Echocardiography Procedure Report Left Ventricle LVEDD (3.7 - 5.6 cm): 5.27 cm LVESD (2.2 - 4.0 cm): 2.83 cm LVIVS thickness (0.6 - 1.2 cm): 1.79 cm LVPW thickness (0.5 - 1.0 cm): 1.24 cm e': 0.07 m/s E - e': 11.81 LVOT Max Gradient: 2.85 mm[Hg] LVOT Area (cm2): 0.84 m/s Peak Velocity (LVOT): 0.84 m/s Mean Velocity (LVOT): 0.61 m/s LVOT Diameter 2.04 cm Left Ventricular Ejection Fraction: 63.29 % Left Atrium LA Volume Index (2D A2C): 39.88 ml/m2 Left Atrium Systolic Dimension: 4.40 cm Mitral Valve MV E to A Ratio: 1.51 Mitral Valve A-Wave Peak Velocity: 0.55 m/s Mitral Valve E-Wave Peak Velocity: 0.83 m/s Right Ventricle RV Internal Diastolic Dimension: 3.70 cm Aorta AO Root Diam: 3.23 cm Ascending Ao Diam: 3.55 cm Aortic Valve AoV Area (Peak Lane): 1.37 cm2, 1.52 cm2, 1.42 cm2, 1.42 cm2 AoV Area (VTI): 1.57 cm2, 1.61 cm2 Peak Velocity(Antegrade Flow): 1.81 m/s, 2.21 m/s, 1.94 m/s Peak Gradient(Antegrade Flow): 13.12 mm[Hg], 19.46 mm[Hg], 15.04 mm[Hg] Mean Velocity(Antegrade Flow): 1.28 m/s, 1.47 m/s Mean Gradient(Antegrade Flow): 7.46 mm[Hg], 9.62 mm[Hg] Velocity Time Integral: 46.70 cm, 49.29 cm Tricuspid Valve Peak Velocity (Regurgitant Flow): 1.68 m/s, 1.65 m/s, 2.35 m/s, 2.31 m/s Pulmonic Valve Mean Gradient: 2.31 mm[Hg], 2.76 mm[Hg] Mean Velocity: 0.72 m/s, 0.79 m/s Peak Velocity: 1.01 m/s Peak Gradient: 3.73 mm[Hg], 4.49 mm[Hg] Right Atrium Right Atrium Systolic Pressure: 51.27 ml, 51.27 ml Dictated by: Ivana Tsang MD on 01/05/2024 at 15:43 Approved by: Ivana Tsang MD on 01/05/2024 at 15:55
--- OUTSIDE RECORDS SUMMARY | 2024-01-05 08:38 | XMS_ITS | CCD ---
Author Organization [facility] Care Team Providers Care Lasting Machine Operator Hand Method Name Role Phone PAPO HEARD Attending Unavailable PAPO HEARD Primary Care Unavailable PAPO HEARD Attending Unavailable PAPO HEARD Primary Care Unavailable PAPO HEARD Admitting Unavailable PAPO HEARD Primary Care Unavailable LENKA YATES Attending Unavailable YAZMINY, DR BARROS Admitting Unavailable HOY, DR BARROS Attending Unavailable YAZMINY, DR BARROS Primary Care Unavailable YAZMINY, DR BARROS Admitting Unavailable YAZMINY, DR BARROS Attending Unavailable HOY, DR BARROS Primary Care Unavailable HOY, DR BARROS Admitting Unavailable HOY, DR BARROS Attending Unavailable HOY, DR BARROS Primary Care Unavailable HOY, DR BARROS Consulting Unavailable HOY, DR BARROS Admitting Unavailable HOY, DR BARROS Attending Unavailable YAZMINY, DR BARROS Primary Care Unavailable NIKOS, RUBIO Attending Unavailable Problems Problem Classification Problem Date Documented [...] Translations: [ESSENTIAL PRIMARY HYPERTENSION] Onset: 08-30-2021 Chronic Hypertension with complications and secondary hypertension (2 sources) Hypertensive heart disease without heart failure; Translations: [Hypertensive heart disease without heart failure] Onset: 12-08-2023 Chronic Nonspecific chest pain (4 sources) Chest pain, unspecified; Translations: [CHEST PAIN UNSPECIFIED] Onset: 08-27-2021 Episodic Other male genital disorders (1 source) Male erectile dysfunction, unspecified; Translations: [MALE ERECTILE DYSFUNCTION UNS] Onset: 08-30-2021 Chronic Other screening for suspected conditions (not mental disorders or infectious disease) (4 sources) Encounter for screening for malignant neoplasm of prostate; Translations: [Encounter for screening for malignant neoplasm of rectum] Onset: 08-30-2021 Episodic Results Test Name Value Interpretation Reference Range Facility Office Visiton 12-08-2023 Follow-up visit [id number] Robert Reddy 1960 M Date Provider Department Center 12/08/2023 Giovanna-RUBIO TRUONG CARD [facility] Family History Problem Relation Age of Onset Diabetes Mother Hypertension Father Heart attack Brother Other Brother Coronary artery disease Brother Family Status - Relation Status Age at Mother Father Brother Level of Service:07387 AR OFFICE/OUTPATIENT [facility] MDM 60 MINUTES Normal [facility] INSULINon 08-28-2021 Insulin 22.9 uIU/mL Normal 2.6-24.9 [facility] Comment on above: Performed By: #### I NSULIN #### [facility] [address] [place] [address] Dr. Abdias Adkins CBC AUTO DIFFon 08-27-2021 BASO # 0.0 103/ul Normal 0.0-0.1 [facility] Comment on above: Performed By: #### C BC #### [facility] [address] [place] [address] Dr. Abdias Adkins Basophils/100 WBC (Bld) 0.5 % Normal 0.2-2.0 [facility] Comment on above: Performed By: #### C BC #### [facility] [address] [place] [address] Dr. Abdias Adkins EO # 0.2 103/ul Normal 0.0-0.7 [facility] Comment on above: Performed By: #### C BC #### [facility] [address] [place] [address] Dr. Abdias Adkins Eosinophils/100 WBC (Bld) 2.1 % Normal 0.9-7.0 [facility] Comment on above: Performed By: #### C BC #### [facility] [address] [place] [address] Dr. Abdias Adkins Erythrocyte distribution width (RBC) [Ratio] 11.9 % Normal 11.0-15.0 [facility] Comment on above: Performed By: #### C BC #### [facility] [address] [place] [address] Dr. Abdias Adkins Hematocrit (Bld) [Volume fraction] 36.6 % Critically low 42.0-54.0 [facility] Comment on above: Performed By: #### C BC #### [facility] [address] [place] [address] Dr. Abdias Adkins Hemoglobin (Bld) [Mass/Vol] 12.8 g/dL Critically low 14.0-18.0 [facility] Comment on above: Performed By: #### C BC #### [facility] [address] [place] [address] Dr. Abdias Adkins IG # 0.04 10e3/ul Critically high 0.00-0.03 [facility] Comment on above: Performed By: #### C BC #### [facility] [address] [place] [address] Dr. Abdias Adkins IG % 0.5 % Normal 0.0-0.5 [facility] Comment on above: Performed By: #### C BC #### [facility] [address] [place] [address] Dr. Abdias Adkins LYMPH # 2.1 103/ul Normal 1.2-3.8 [facility] Comment on above: Performed By: #### C BC #### [facility] [address] [place] [address] Dr. Abdias Adkins Lymphocytes/100 WBC (Bld) 25.5 % Normal 20.5-60.0 [facility] Comment on above: Performed By: #### C BC #### [facility] [address] [place] [address] Dr. Abdias Adkins MANUAL DIFF REQ NO Normal [facility] Comment on above: Performed By: #### C BC #### [facility] [address] [place] [address] Dr. Abdias Adkins MCH (RBC) [Entitic mass] 30.8 pg Normal 25.9-34.0 [facility] Comment on above: Performed By: #### C BC #### [facility] [address] [place] [address] Dr. Abdias Adkins MCHC (RBC) [Mass/Vol] 35.0 g/dL Normal 29.9-35.2 [facility] Comment on above: Performed By: #### C BC #### [facility] [address] [place] [address] Dr. Abdias Adkins MCV (RBC) [Entitic vol] 88.0 fL Normal 80.0-94.0 [facility] Comment on above: Performed By: #### C BC #### [facility] [address] [place] [address] Dr. Abdias Adkins MONO # 0.4 103/ul Normal 0.3-0.8 [facility] Comment on above: Performed By: #### C BC #### [facility] [address] [place] [address] Dr. Abdias Adkins Monocytes/100 WBC (Bld) 4.9 % Normal 1.7-12.0 [facility] Comment on above: Performed By: #### C BC #### [facility] [address] [place] [address] Dr. Abdias Adkins NEUT # 5.5 103/ul Normal 1.4-6.5 [facility] Comment on above: Performed By: #### C BC #### [facility] [address] [place] [address] Dr. Abdias Adkins Neutrophils/100 WBC (Bld) 66.5 % Normal 43.0-75.0 [facility] Comment on above: Performed By: #### C BC #### [facility] [address] [place] [address] Dr. Abdias Adkins Platelet mean volume (Bld) [Entitic vol] 9.9 fL Normal 9.5-13.5 [facility] Comment on above: Performed By: #### C BC #### [facility] [address] [place] [address] Dr. Abdias Adkins PLT 200 103/ul Normal 150-450 [facility] Comment on above: Performed By: #### C BC #### [facility] [address] [address] [address] Abdias Adkins RBC 4.16 106/ul Critically low 4.70-6.10 [facility] Comment on above: Performed By: #### C BC #### [facility] [address] [address] [address] Abdias Adkins WBC 8.3 103/ul Normal 4.0-11.0 [facility] Comment on above: Performed By: #### C BC #### [facility] [address] [address] [address] Abdias Adkins FREE THYROXINE INDEX T7on FTI 2.04 Normal 1.30-4.50 [facility] Comment on above: Performed By: #### U SUNDEEP, T7, CMP, LIPID, TSH #### [facility] [address] [address] [address] Abdias Adkins T3U 34.0 % Normal 33.0-40.0 [facility] Comment on above: Performed By: #### U SUNDEEP, T7, CMP, LIPID, TSH #### [facility] [address] [address] [address] Abdias Adkins T4 [Mass/Vol] 6.00 ug/dL Normal 4.50-12.10 [facility] Comment on above: Performed By: #### U SUNDEEP, T7, CMP, LIPID, TSH #### [facility] [address] [address] [address] Abdias Adkins GLYCOHEMOGLOBIN A1Con 2021 ADA RECOMMENDATION SEE BELOW Normal [facility] Comment on above: Result Comment: ADA RECOMMENDED LIMIT 4.0 - 6.0 ADA THERAPEUTIC TARGET < 7.0 ACTION SUGGESTED > 7.0 Performed By: #### A 1C #### [facility] [address] [place] [address] Dr. Abdias Adkins Glucose [Mass/Vol] 189 mg/dL Normal [facility] Comment on above: Performed By: #### A 1C #### [facility] [address] [address] [address] Abdias Adkins HbA1c (Bld) [Mass fraction] 8.2 % Critically high 4.5-6.2 [facility] Comment on above: Performed By: #### A 1C #### [facility] [address] [place] [address] Dr. Abdias Adkins LIPID PROFILEon 08-27-2021 CHOL-HDL RATIO NORM SEE BELOW Normal [facility] Comment on above: Result Comment: 3.3 - 4.4 LOW RISK 4.4 - 7.1 AVERAGE RISK 7.1 - 11.0 MODERATE RISK >11.0 HIGH RISK Performed By: #### U SUNDEEP, T7, CMP, LIPID, TSH #### [facility] [address] [place] [address] Dr. Abdias Adkins Cholesterol [Mass/Vol] 214 mg/dL Critically high <=200 [facility] Comment on above: Performed By: #### U SUNDEEP, T7, CMP, LIPID, TSH #### [facility] [address] [address] [address] Abdias Adkins Cholesterol in HDL [Mass/Vol] 52 mg/dL Normal 40-60 [facility] Comment on above: Performed By: #### U SUNDEEP, T7, CMP, LIPID, TSH #### [facility] [address] [address] [address] Abdias Adkins Cholesterol in LDL [Mass/Vol] 148.4 mg/dL Normal [facility] Comment on above: Performed By: #### U SUNDEEP, T7, CMP, LIPID, TSH #### [facility] [address] [address] [address] Abdias Adkins Cholesterol.total/Ch olesterol in HDL [Mass ratio] 4.1 {ratio} Normal [facility] Comment on above: Performed By: #### U SUNDEEP, T7, CMP, LIPID, TSH #### [facility] [address] [place] [address] Dr. Abdias Adkins HDL NORMAL > or = 60 mg/dl - LOW CARDIOVASCULAR RISK <40 mg/dl - HIGH CARDIOVASCULAR RISK Normal [facility] Comment on above: Performed By: #### U SUNDEEP, T7, CMP, LIPID, TSH #### [facility] [address] [address] [address] Abdias Adkins LDL CALC NORMAL SEE BELOW Normal [facility] Comment on above: Result Comment: <100 mg/dl OPTIMAL 100 - 129 mg/dl NEAR OR ABOVE OPTIMAL 130 - 159 mg/dl BORDERLINE HIGH 160 - 189 mg/dl HIGH >190 mg/dl VERY HIGH Performed By: #### U SUNDEEP, T7, CMP, LIPID, TSH #### [facility] [address] [address] [address] Abdias Adkins Triglyceride [Mass/Vol] 68 mg/dL Normal <=150 [facility] Comment on above: Performed By: #### U SUNDEEP, T7, CMP, LIPID, TSH #### [facility] [address] [address] [address] Abdias Adkins VLDL CALC 13.6 mg/dL Normal [facility] Comment on above: Performed By: #### U SUNDEEP, T7, CMP, LIPID, TSH #### [facility] [address] [address] [address] Abdias Adkins OCC BLD IMMUNO SCREENon 08-15 OCCULT BLOOD Negative Normal NEGATIVE [facility] Comment on above: Performed By: #### O BSCRN #### [facility] [address] [address] [address] Abdias Adkins PROF 14(COMP METB)on 022 Albumin [Mass/Vol] 3.5 g/dL Normal 3.4-5.0 [facility] Comment on above: Performed By: #### U SUNDEEP, T7, CMP, LIPID, TSH #### [facility] [address] [address] [address] Abdias Adkins Albumin/Globulin [Mass ratio] 1.1 {ratio} Normal [facility] Comment on above: Performed By: #### U SUNDEEP, T7, CMP, LIPID, TSH #### [facility] [address] [address] [address] Abdias Adkins ALP [Catalytic activity/Vol] 103 U/L Normal 46-116 [facility] Comment on above: Performed By: #### U SUNDEEP, T7, CMP, LIPID, TSH #### [facility] [address] [address] [address] Abdias Adkins ALT [Catalytic activity/Vol] 25 U/L Normal 16-63 [facility] Comment on above: Performed By: #### U SUNDEEP, T7, CMP, LIPID, TSH #### [facility] [address] [address] [address] Abdias Adkins Anion gap [Moles/Vol] 12.5 mmol/L Normal [facility] Comment on above: Performed By: #### U SUNDEEP, T7, CMP, LIPID, TSH #### [facility] [address] [address] [address] Abdias Adkins AST [Catalytic activity/Vol] 13 U/L Critically low 15-37 [facility] Comment on above: Performed By: #### U SUNDEEP, T7, CMP, LIPID, TSH #### [facility] [address] [address] [address] Abdias Adkins Bilirubin [Mass/Vol] 0.4 mg/dL Normal 0.2-1.0 [facility] Comment on above: Performed By: #### U SUNDEEP, T7, CMP, LIPID, TSH #### [facility] [address] [place] [address] Dr. Abdias Adkins Calcium [Mass/Vol] 8.6 mg/dL Normal 8.5-10.1 [facility] Comment on above: Performed By: #### U SUNDEEP, T7, CMP, LIPID, TSH #### [facility] [address] [address] [address] Abdias Adkins Chloride [Moles/Vol] 102 mmol/L Normal 98-107 [facility] Comment on above: Performed By: #### U SUNDEEP, T7, CMP, LIPID, TSH #### [facility] [address] [place] [address] Dr. Abdias Adkins CO2 [Moles/Vol] 27.3 mmol/L Normal 21.0-32.0 [facility] Comment on above: Performed By: #### U SUNDEEP, T7, CMP, LIPID, TSH #### [facility] [address] [address] [address] Abdias Adkins Creatinine [Mass/Vol] 1.03 mg/dL Normal 0.70-1.30 [facility] Comment on above: Performed By: #### U SUNDEEP, T7, CMP, LIPID, TSH #### [facility] [address] [address] [address] Abdias Adkins EGFR-AF INDIAN >60 Normal >=60 [facility] Comment on above: Performed By: #### U SUNDEEP, T7, CMP, LIPID, TSH #### [facility] [address] [address] [address] Abdias Adkins EGFR-NON AF INDIAN >60 Normal >=60 [facility] Comment on above: Performed By: #### U SUNDEEP, T7, CMP, LIPID, TSH #### [facility] [address] [address] [address] Abdias Adkins Globulin (S) [Mass/Vol] 3.3 g/dL Normal [facility] Comment on above: Performed By: #### U SUNDEEP, T7, CMP, LIPID, TSH #### [facility] [address] [address] [address] Abdias Adkins Glucose [Mass/Vol] 254 mg/dL Critically high 74-106 [facility] Comment on above: Performed By: #### U SUNDEEP, T7, CMP, LIPID, TSH #### [facility] [address] [address] [address] Abdias Adkins Potassium [Moles/Vol] 4.8 mmol/L Normal 3.5-5.1 [facility] Comment on above: Performed By: #### U SUNDEEP, T7, CMP, LIPID, TSH #### [facility] [address] [address] [address] Abdias Adkins Protein [Mass/Vol] 6.8 g/dL Normal 6.4-8.2 [facility] Comment on above: Performed By: #### U SUNDEEP, T7, CMP, LIPID, TSH #### [facility] [address] [address] [address] Abdias Adkins Sodium [Moles/Vol] 137 mmol/L Normal 136-145 [facility] Comment on above: Performed By: #### U SUNDEEP, T7, CMP, LIPID, TSH #### [facility] [address] [address] [address] Abdias Adkins Urea nitrogen [Mass/Vol] 29.0 mg/dL Critically high 7.0-18.0 [facility] Comment on above: Performed By: #### U SUNDEEP, T7, CMP, LIPID, TSH #### [facility] [address] [address] [address] Abdias Adkins Urea nitrogen/Creatinine [Mass ratio] 28.2 mg/mg Normal [facility] Comment on above: Performed By: #### U SUNDEEP, T7, CMP, LIPID, TSH #### [facility] [address] [place] [address] Dr. Abdias Adkins TSHon 08-27-2021 TSH 1.506 uIU/mL Normal 0.358-3.740 [facility] Comment on above: Performed By: #### U SUNDEEP, T7, CMP, LIPID, TSH #### [facility] [address] [address] [address] Abdias Adkins TSH RANGE SEE BELOW Normal [facility] Comment on above: Result Comment: <0.3 4 UIU/ml HYPERTHYROID 0.34-5.60 UIU/ml EUTHYROID >5.60 UIU/ml HYPOTHYROID Performed By: #### U SUNDEEP, T7, CMP, LIPID, TSH #### [facility] [address] [place] [address] Dr. Abdias Adkins URIC ACID SERUMon 08-27-2021 Urate [Mass/Vol] 5.0 mg/dL Normal 3.5-7.[address] [facility] Comment on above: Performed By: #### U SUNDEEP, T7, CMP, LIPID, TSH #### [facility] [address] [place] [address] Dr. Abdias Adkins CBC with Diffon 03-31-2021 Abs. Basophil <0.03 Normal 0.00-0.20 [facility] Comment on above: Performed By: #### C DP, CP, TROPI #### [facility] [address] [place], [facility] Consumer Affairs Director: Donal Almonte MD Abs.Imm.Granulocyte <0.03 Normal 0.00-0.30 [facility] Comment on above: Performed By: #### C DP, CP, TROPI #### [address] [place] [address] Consumer Affairs Director: Donal Almonte MD Abs.Neutrophil (Seg) 3.84 k/uL Normal 1.50-8.10 [facility] Comment on above: Performed By: #### C DP, CP, TROPI #### [address] [place] [address] Consumer Affairs Director: Donal Almonte MD Basophils/100 WBC (Bld) 0 % Normal 0-2 [facility] Comment on above: Performed By: #### C DP, CP, TROPI #### [address] [place], [place] [address] Consumer Affairs Director: Donal Almonte MD Eosinophils (Bld) [#/Vol] 0.12 10*3/uL Normal 0.00-0.44 [facility] Comment on above: Performed By: #### C DP, CP, TROPI #### [address] [place] [address] Consumer Affairs Director: Donal Almonte MD Eosinophils/100 WBC (Bld) 2 % Normal 1-4 [facility] Comment on above: Performed By: #### C DP, CP, TROPI #### [address] [place], [facility] Consumer Affairs Director: Donal Almonte MD Erythrocyte distribution width (RBC) [Ratio] 11.6 % Low 11.8-14.4 [facility] Comment on above: Performed By: #### C DP, CP, TROPI #### [address] [place] [id number] Consumer Affairs Director: Donal Almonte MD Hematocrit (Bld) [Volume fraction] 42.9 % Normal 40.7-50.3 [facility] Comment on above: Performed By: #### C DP, CP, TROPI #### [facility] [address] [place] [address] [place] [address] Consumer Affairs Director: Donal Almonte MD Hemoglobin (Bld) [Mass/Vol] 14.8 g/dL Normal 13.0-17.0 [facility] Comment on above: Performed By: #### C DP, CP, TROPI #### [address] [place] [address] Consumer Affairs Director: Donal Almonte MD Immature granulocytes/100 WBC (Bld) 0 % Normal 0 [facility] Comment on above: Performed By: #### C GARFIELD, CP, TROPI #### [address] [place] [address] Consumer Affairs Director: Donal Almonte MD Lymphocytes (Bld) [#/Vol] 1.20 10*3/uL Normal 1.10-3.70 [facility] Comment on above: Performed By: #### C DP, CP, TROPI #### [address] [place] [address] Consumer Affairs Director: Donal Almonte MD Lymphocytes/100 WBC (Bld) 21 % Low 24-43 [facility] Comment on above: Performed By: #### C DP, CP, TROPI #### [address] [place], [facility] Consumer Affairs Director: Donal Almonte MD MCH (RBC) [Entitic mass] 30.3 pg Normal 25.2-33.5 [facility] Comment on above: Performed By: #### C DP, CP, TROPI #### [address] [place] [address] Consumer Affairs Director: Donal Almonte MD MCHC (RBC) [Mass/Vol] 34.5 g/dL Normal 28.4-34.8 [facility] Comment on above: Performed By: #### C TERRY MERRILL, TROPI #### [facility] [address] [place], [place] [phone] Consumer Affairs Director: Donal Almonte MD MCV (RBC) [Entitic vol] 87.9 fL Normal 82.6-102.9 [facility] Comment on above: Performed By: #### C TERRY MERRILL, TROPI #### [address] [place], [place] [phone] Consumer Affairs Director: Donal Almonte MD Monocytes (Bld) [#/Vol] 0.43 10*3/uL Normal 0.10-1.20 [facility] Comment on above: Performed By: #### C TERRY MERRILL, TROPI #### [address] [place] [address] Consumer Affairs Director: Donal Almonte MD Monocytes/100 WBC (Bld) 8 % Normal 3-12 [facility] Comment on above: Performed By: #### C TERRY MERRILL, TROPI #### [address] [place], [place] [address] Consumer Affairs Director: Donal Almonte MD Neutrophil (Seg) 69 % High 36-65 [facility] Comment on above: Performed By: #### C TERRY MERRILL, TROPI #### [facility] [address] [place] [address] [place] [address] Consumer Affairs Director: Donal Almonte MD NRBC Automated 0.0 per 100 WBC Normal 0.0 [facility] Comment on above: Performed By: #### C GARFIELD CP, TROPI #### [facility] [address] [place], [place] [phone] Consumer Affairs Director: Donal Almonte MD Platelet mean volume (Bld) [Entitic vol] 9.9 fL Normal 8.1-13.5 [facility] Comment on above: Performed By: #### C DP, CP, TROPI #### [facility] [address] [place], [place] [phone] Consumer Affairs Director: Donal Almonte MD Platelets (Bld) [#/Vol] 232 10*3/uL Normal 138-453 [facility] Comment on above: Performed By: #### C DP, CP, TROPI #### [facility] [address] [place], [place] [phone] Consumer Affairs Director: Donal Almonte MD RBC (Bld) [#/Vol] 4.88 10*6/uL Normal 4.21-5.77 [facility] Comment on above: Performed By: #### C DP, CP, TROPI #### [address] [place] [address] Consumer Affairs Director: Donal Almonte MD WBC (Bld) [#/Vol] 5.6 10*3/uL Normal 3.5-11.3 [facility] Comment on above: Performed By: #### C DP, CP, TROPI #### [address] [place], [place] [phone] Consumer Affairs Director: Donal Almonte MD Auto Diff Performed NOT REPORTED Normal [facility] Comment on above: Performed By: #### C DP, CP, TROPI #### [facility] [address] [place], [place] [phone] Consumer Affairs Director: Donal Almonte MD Platelet Comment NOT REPORTED Normal [facility] Comment on above: Performed By: #### C DP, CP, TROPI #### [address] [place], [place] [id number] Consumer Affairs Director: Donal Almonte MD RBC morphology finding Nom (Bld) NOT REPORTED Normal [facility] [place] Comment on above: Performed By: #### C DP, CP, TROPI #### [facility] [address] [place] [address] Consumer Affairs Director: Donal Almonte MD WBC Morphology NOT REPORTED Normal [facility] Comment on above: Performed By: #### C TERRY MERRILL TROPI #### [facility] [address] [place], [place] [phone] Consumer Affairs Director: Donal Almonte MD CT CHEST ABDOMEN PELVIS [...] Juice Winter MD 03/31/21 Final result Normal [facility] [place] Comp Metabolic Profon 2021 AST [Catalytic activity/Vol] 33 U/L Normal <40 [facility] [place] Comment on above: Performed By: #### C DP, CP, TROPI #### [facility] [address] [place] [address] [place] [place], [place] [phone] Consumer Affairs Director: Donal Almonte MD (cont.) Normal [facility] [place] Comment on above: Result Comment: Aver age GFR for 60-69 years old: 85 mL/min/1.73sq m Chronic Kidney Disease: <60 mL/min/1.73sq m Kidney failure: <15 mL/min/1.73sq m eGFR calculated using average adult body mass. Additional eGFR calculator available at: http://www.HomeLight/multiple_crcl_2011.htm Performed By: #### C DP, CP, TROPI #### [address] [place], [place] [phone] Consumer Affairs Director: Donal Almonte MD Albumin [Mass/Vol] 4.0 g/dL Normal 3.5-5.2 [facility] [place] Comment on above: Performed By: #### C DP, CP, TROPI #### [address] [place] [address] Consumer Affairs Director: Donal Almonte MD Albumin/Glob Ratio 1.2 Normal 1.0-2.5 [facility] [place] Comment on above: Performed By: #### C DP, CP, TROPI #### [facility] [address] [place] [address] Consumer Affairs Director: Donal Almonte MD Alkaline Phos 92 U/L Normal 40-129 [facility] Comment on above: Performed By: #### C DP, CP, TROPI #### [address] [place], [place] [phone] Consumer Affairs Director: Donal Almonte MD ALT [Catalytic activity/Vol] 25 U/L Normal 5-41 [facility] [place] Comment on above: Performed By: #### C DP, CP, TROPI #### [facility] [address] [place], [place] [phone] Consumer Affairs Director: Donal Almonte MD Anion gap [Moles/Vol] 15 mmol/L Normal 9-17 [facility] [place] Comment on above: Performed By: #### C DP, CP, TROPI #### [facility] [address] [place], [place] [id number] Consumer Affairs Director: Donal Almonte MD Bilirubin [Mass/Vol] 0.28 mg/dL Low 0.3-1.2 [facility] Comment on above: Performed By: #### C DP CP, TROPI #### [facility] [address] [place], [place] [phone] Consumer Affairs Director: Donal Almonte MD BUN/CRE Ratio 16 Normal 9-20 [facility] Comment on above: Performed By: #### C GARFIELD CP, TROPI #### [facility] [address] [place], [place] [phone] Consumer Affairs Director: Donal Almonte MD Calcium [Mass/Vol] 9.1 mg/dL Normal 8.6-10.4 [facility] [place] Comment on above: Performed By: #### C DP, CP, TROPI #### [facility] [address] [place], [place] [phone] Consumer Affairs Director: Donal Almonte MD Chloride [Moles/Vol] 97 mmol/L Low 98-107 [facility] Comment on above: Performed By: #### C DP, CP, TROPI #### [facility] [address] [place], [place] [phone] Consumer Affairs Director: Donal Almonte MD CO2 [Moles/Vol] 22 mmol/L Normal 20-31 [facility] Comment on above: Performed By: #### C DP, CP, TROPI #### [facility] [address] [place], [place] [phone] Consumer Affairs Director: Donal Almonte MD Creatinine [Mass/Vol] 1.35 mg/dL High 0.70-1.20 [facility] [place] Comment on above: Performed By: #### C DP, CP, TROPI #### [facility] [address] [place], [place] [phone] Consumer Affairs Director: Donal Almonte MD GFR, Amer >60 Normal >60 [facility] Comment on above: Performed By: #### C DP, CP, TROPI #### [facility] [address] [place], [place] [phone] Consumer Affairs Director: Donal Almonte MD GFR,non Amer 54 mL/min Low >60 [facility] Comment on above: Performed By: #### C DP, CP, TROPI #### [facility] [address] [place], [place] [phone] Consumer Affairs Director: Donal Almonte MD Glucose [Mass/Vol] 308 mg/dL High 70-99 [facility] [place] Comment on above: Performed By: #### C DP, CP, TROPI #### [facility] [address] [place], [place] [phone] Consumer Affairs Director: Donal Almonte MD Potassium [Moles/Vol] 4.3 mmol/L Normal 3.7-5.3 [facility] [place] Comment on above: Performed By: #### C DP, CP, TROPI #### [facility] [address] [place] [address] Consumer Affairs Director: Donal Almonte MD Protein [Mass/Vol] 7.4 g/dL Normal 6.4-8.3 [facility] [place] Comment on above: Performed By: #### C DP, CP, TROPI #### [facility] [address] [place] [address] [address] [place], [place] [phone] Consumer Affairs Director: Donal Almonte MD Sodium [Moles/Vol] 134 mmol/L Low 135-144 [facility] [place] Comment on above: Performed By: #### C DP, CP, TROPI #### [address] [place], [place] [phone] Consumer Affairs Director: Donal Almonte MD Staging: Normal [facility] [place] Comment on above: Result Comment: Stag e 1: Some kidney damage normal GFR Stage 2: Mild kidney damage GFR 60-89 Stage 3: Moderate kidney damage GFR 30-59 Stage 4: Severe kidney damage GFR 15-29 Stage 5: Severe kidney damage GFR <15 ESRD - chronic treatment by dialysis or transplant Performed By: #### C DP, CP, TROPI #### [address] [place], [place] [phone] Consumer Affairs Director: Donal Almonte MD Urea nitrogen [Mass/Vol] 22 mg/dL Normal 8-23 [facility] [place] Comment on above: Performed By: #### C TERRY MERRILL, TROPI #### [address] [place], [place] [phone] Consumer Affairs Director: Donal Almonte MD Lactic Acidon 7 Lactate [Moles/Vol] 2.1 mmol/L Normal 0.5-2.2 [facility] [place] Comment on above: Performed By: #### L ACTIC #### [facility] [address] [place] [address] Dr[address] [place], [place] [phone] Consumer Affairs Director: Donal Almonte MD Lactic Acid,Whole Bl NOT REPORTED Normal 0.7-2.[address] [facility] Comment on above: Performed By: #### L ACTIC #### [address] [place], [place] 1694383 Consumer Affairs Director: Donal Almonte MD [id number] 03-31-2021 SARS-CoV-2 (COVID-19) RNA ROZ+probe Ql (Unsp spec) Detected Abnormal NOTDET [facility] [place] Comment on above: Result Comment: Rapid NAAT: [...] this assay. Fact sheet for Healthcare Providers: https://www.fda.gov/media/755257/download Fact sheet for Patients: https://www.fda.gov/media/888467/download Methodology: Isothermal Nucleic Acid Amplification Results reported to the appropriate Health Department Performed By: #### C OVRB #### [address] [place] [address] Consumer Affairs Director: Donal Almonte MD Troponinon 03-31-2021 Troponin, High Sens 32 ng/L High 0-22 [facility] [place] Comment on above: Result Comment: High Sensitivity Troponin values cannot be compared with other Troponin methodologies. Patients with high levels of Biotin oral intake (i.e >5mg/day) may have falsely decreased Troponin levels. Samples collected within 8 hours of biotin intake may require additional information for diagnosis. Performed By: #### T ROPI #### [address] [place] [address] Consumer Affairs Director: Donal Almonte MD Troponin Interp. NOT REPORTED Normal [facility] [place] Comment on above: Performed By: #### T ROPI #### [facility] [address] [place] [address] Consumer Affairs Director: Donal Almonte MD Troponin T NOT REPORTED Normal <0.03 [facility] [place] Comment on above: Performed By: #### T ROPI #### [address] [place], [place] [phone] Consumer Affairs Director: Donal Almonte MD Troponin, High Sens 35 ng/L High 0-22 [facility] [place] Comment on above: Result Comment: High Sensitivity Troponin values cannot be compared with other Troponin methodologies. Patients with high levels of Biotin oral intake (i.e >5mg/day) may have falsely decreased Troponin levels. Samples collected within 8 hours of biotin intake may require additional information for diagnosis. Performed By: #### C DP, CP, TROPI #### [facility] [address] [place], [place] [phone] Consumer Affairs Director: Donal Almonte MD Troponin Interp. NOT REPORTED Normal [facility] [place] Comment on above: Performed By: #### C DP, CP, TROPI #### [facility] [address] [place] [address] Dr[place], [place] [phone] Consumer Affairs Director: Donal Almonte MD Troponin T NOT REPORTED Normal <0.03 [facility] [place] Comment on above: Performed By: #### C DP, CP, TROPI #### [facility] [address] [place] [address] Dr. [place], [place] [phone] Consumer Affairs Director: Donal Almonte MD Urinalysis w/ Microon 2021 ----- Normal [facility] [place] Comment on above: Performed By: #### U AMIC #### [facility] [address] [place] [address] [place] [address] Consumer Affairs Director: Donal Almonte MD Bilirubin, SemiQt,Ur Negative Normal NEG [facility] Comment on above: Performed By: #### U AMIC #### [facility] [address] [place], [place] 1457283 Consumer Affairs Director: Donal Almonte MD Blood, Urine Negative Normal NEG [facility] [place] Comment on above: Performed By: #### U AMIC #### [facility] [address] [place], [place] [phone] Consumer Affairs Director: Donal Almonte MD Clarity (U) Clear Normal CLEAR [facility] [place] Comment on above: Performed By: #### U AMIC #### [facility] [address] [place] [address] Dr. [place], [place] [phone] Consumer Affairs Director: Donal Almonte MD Color (U) Yellow Normal YEL [facility] [place] Comment on above: Performed By: #### U AMIC #### [facility] [address] [place] [address] Dr. [place], [place] 9771983 Consumer Affairs Director: Donal Almonte MD Epithelial cells LM Ql (Urine sed) 2 TO 5 Normal 0-5 [facility] [place] Comment on above: Performed By: #### U AMIC #### [address] [place], [place] 5640483 Consumer Affairs Director: Donal Almonte MD Glucose Ql (U) Negative Normal NEG [facility] Comment on above: Performed By: #### U AMIC #### [facility] [address] [place] [address] Dr. [place], [place] [phone] Consumer Affairs Director: Donal Almonte MD Ketones Ql (U) Negative Normal NEG [facility] Comment on above: Performed By: #### U AMIC #### [facility] [address] [place] [address] Dr[address] [place], [place] [phone] Consumer Affairs Director: Donal Almonte MD Leukocyte esterase Test strip Ql (U) Negative Normal NEG [facility] [place] Comment on above: Performed By: #### U AMIC #### [facility] [address] [place] [address] Dr. [place], [place] [phone] Consumer Affairs Director: Donal Almonte MD Nitrite,Ur Negative Normal NEG [facility] [place] Comment on above: Performed By: #### U AMIC #### [address] [place] [address] Consumer Affairs Director: Donal Almonte MD PH,Ur 5.0 Normal 5.0-9.0 [facility] [place] Comment on above: Performed By: #### U AMIC #### [facility] [address] [place] [address] Dr. [place], [place] [phone] Consumer Affairs Director: Donal Almonte MD Protein Ql (U) Negative Normal NEG [facility] Comment on above: Performed By: #### U AMIC #### [facility] [address] [place] [address] Dr[address] [place], [place] [phone] Consumer Affairs Director: Donal Almonte MD Spec. [place],Ur 1.015 Normal 1.010-1.020 [facility] Comment on above: Performed By: #### U AMIC #### [address] [place], [place] 2593183 Consumer Affairs Director: Donal Almonte MD Urine RBC's None Normal 0-2 [facility] [place] Comment on above: Performed By: #### U AMIC #### [address] [place], [place] 9242783 Consumer Affairs Director: Donal Almonte MD Urine WBC's 0 TO 2 Normal 0-5 [facility] [place] Comment on above: Performed By: #### U AMIC #### [address] [place], [place] [phone] Consumer Affairs Director: Donal Almonte MD Urobilinogen,Ur Normal Normal NORM [facility] Comment on above: Performed By: #### U AMIC #### [address] [place], [place] [phone] Consumer Affairs Director: Donal Almonte MD Amorphous sediment LM Ql (Urine sed) NOT REPORTED Normal [facility] Comment on above: Performed By: #### U AMIC #### [address] [place], [place] 4024483 Consumer Affairs Director: Donal Almonte MD Bacteria NOT REPORTED Normal [facility] Comment on above: Performed By: #### U AMIC #### [address] [place] [address] Consumer Affairs Director: Donal Almonte MD Casts NOT REPORTED Normal [facility] [place] Comment on above: Performed By: #### U AMIC #### [facility] [address] [place], [place] [phone] Consumer Affairs Director: Donal Almonte MD Comment NOT REPORTED Normal [facility] [place] Comment on above: Performed By: #### U AMIC #### [facility] [address] [place], [place] [phone] Consumer Affairs Director: Donal Almonte MD Crystals LM Nom (Urine sed) NOT REPORTED Normal NONE [facility] Comment on above: Performed By: #### U AMIC #### [facility] [address] [place], [place] 2384683 Consumer Affairs Director: Donal Almonte MD Epithelial, Renal NOT REPORTED Normal 0 [facility] Comment on above: Performed By: #### U AMIC #### [facility] [address] [place], [place] [phone] Consumer Affairs Director: Donal Almonte MD Mucus Strands NOT REPORTED Normal [facility] Comment on above: Performed By: #### U AMIC #### [facility] [address] [place], [place] [phone] Consumer Affairs Director: Donal Almonte MD Other Observations NOT REPORTED Normal NREQ [facility] Comment on above: Performed By: #### U AMIC #### [facility] [address] [place] [address] Consumer Affairs Director: Donal Almonte MD Trichomonas NOT REPORTED Normal NONE [facility] Comment on above: Performed By: #### U AMIC #### [facility] [address] [place] [address] Consumer Affairs Director: Donal Almonte MD Yeast NOT REPORTED Normal [facility] Comment on above: Performed By: #### U AMIC #### [facility] [address] [place] [address] Consumer Affairs Director: Donal Almonte MD MRI Spine Lumbar w/o [...] Electronically Signed in Other Vendor System) Normal [facility] Encounters Encounter Date Encounter Type Care Provider Facility Start: 12-08-2023 End: 12-08-2023 ambulatory AB [facility] Start: 12-05-2023 ambulatory Facility:[facility] Start: 01-21-2023 ambulatory Facility:[facility] Start: 09-21-[address] PAPO HEARD Facility :[facility] Start: 08-27-2021 End: 08-28-[address] PAPO HEARD Facility:[facility] Start: 05-24-[address] PAPO HEARD Facility :[facility] Start: 04-02-[address] PAPO HEARD Facility :[facility] Start: 03-31-2021 End: 03-31-2021 Emergency department patient visit PAPO HEARD [facility] Start: 10-06-2019 Patient encounter procedure PAPO HEARD Facility:[facility] Start: 08-16-2019 End: 08-17-2019 Patient encounter procedure PAPO HEARD Facility:[facility] Procedures Date Procedure Procedure Detail Performing Clinician Start: 08-27-[address] PABLITO HEARD Comment on above: Performed By: #### P [facility] #### [facility] [address] [place] [address] Dr. Abdias Adkins Payers Date Payer Category Payer Unknown [id number] 2022 Unknown [id number] 2021 Unknown [id number] 2019 Unknown 1959 Unknown [id number] 2.16.8 [id number] 1959 Unknown [id number] 2.16.8 [id number] 1959 Unknown [id number] 2.16.8 [id number] 1959 Unknown [id number] 2.16.84 [id number] 1959 Unknown [id number] 2.16.84 [id number] 1959 Unknown [id number] 2.16.84 [id number] 1959 Unknown [id number] 2.16.84 [id number] 1959 Unknown [id number] 2.16.8 [id number] 1959 Self-pay [id number] Progress note 12-08-2023 Note Date & Type Note Facility 12-08-2023 Note [facility] Note Chief Complaint: New patient here to establish care. Ref from Dr. Heard for abnormal ECG/possible heart cath. Had routine labs with lipid and ECG last week. ECG was done due to his family history. One of his brothers just had CABG and one had AK. He denies chest pain and SOB. Has occasional flutters . Says he had heart cath about 20 years ago. Denies hx of stents. HPI: Robert Reddy is a 63 y.o. male With a history of hypertension, dyslipidemia and diabetes. He was seen by his family physician due to concerns regarding his siblings health history. He himself is relatively asymptomatic. He is able to perform activities of daily living including climbing stairs, lifting objects, and working as a regional truck driver with no exertional chest pain or shortness of breath. He has no orthopnea, paroxysmal nocturnal dyspnea, or lower extremity edema. Cardiology ROS: Review of Systems All other systems reviewed and are negative. Past Medical History He has no past medical history on file. Surgical History He has no past surgical history on file. Social History He has no history on file for tobacco use, alcohol use, and drug use. Family History No family history on file. Allergies Patient has no allergy information on record. Medications No current outpatient medications on file. Last Recorded Vitals BP 160/84 (BP Location: Left arm, Patient Position: Sitting) Pulse 68 Ht 1.829 m (6') Wt 111 kg (244 lb) SpO2 96% BMI 33.09 kg/m??? Physical Examination: GENERAL: alert and oriented x3, well developed, in no acute distress. HEAD: atraumatic, normocephalic. EYES: ERMELINDA, EOMI. NECK: trachea midline, no JVD present, no carotid bruits present. CARDIAC: S1, S2 present. RRR. No murmur, rubs, or gallops. RESPIRATORY: CTAB, no increased effort of breathing, no rales, rhonchi, or wheezing. ABDOMEN: soft, nontender, nondistended. EXTREMITIES: no lower extremity edema, peripheral pulses are 2+ bilaterally. No rash/skin discoloration present. NEURO: strength/sensation equal and symmetric in bilateral upper and lower extremities. PSYCH: appropriate mood, affect, and judgement. Investigations: Labs 12/05/2023: HbA1c 7.5, glucose 163 Cholesterol is 173, triglycerides 111, LDL is 103, HDL is 48 Free T3 is low at 1.78 Treadmill cardiac stress test 06/04/2018, normal treadmill exercise test without objective evidence of myocardial ischemia. Vargas treadmill score is 8 placing him at low risk. Echocardiogram 05/16/2020: Global left ventricular systolic function is normal; ejection fraction is 55 to 60%. Moderate left ventricular hypertrophy. The right atrium is mildly dilated. Right ventricle is normal in size and systolic function. No significant valvular abnormalities. EKG 12/05/2023: Sinus rhythm, ST-T wave abnormalities in 1, aVL. Possible LVH. T wave inversions in V2. EKH 12/08/2023: Sinus rhythm with premature atrial contractions, left axis deviation, ST-T wave abnormalities lateral ischemia versus LVH with repull changes. The ST depressions are asymmetric. Assessment: Hypertension With LVH on prior echocardiogram - poorly controlled Abnormal EKG Family history of premature coronary artery disease Diabetes mellitus Dyslipidemia Low free T3 Plan: Will discontinue his hydrochlorothiazide and start chlorthalidone 25 mg daily; he may need further adjustments of his antihypertensive regimen. We will obtain an echocardiogram to evaluate the extent of his left ventricular hypertrophy, check his ejection fraction and wall motion, and valvular function Given his risk factor profile, and abnormal EKG, an ischemic workup is warranted; we will obtain a treadmill Cardiolite stress test and have a low threshold to recommend invasive testing as needed. In the absence of symptoms, I would not recommend proceeding directly to cardiac catheterization. Treat noncardiac comorbidities as clinically appropriate including the low T3 Follow-up after testing Rubio Truong MD, MPH, FACC, [facility] Interventional Cardiology Pager Email: [email or web address] Summary Purpose Family History No Family History [...] section and content) DATE CREATED AUTHOR 11/25/2019 [facility] DATE CREATED AUTHOR AUTHOR'S ORGANIZ ATION 04/11/2021 [facility] DATE CREATED AUTHOR AUTHOR'S ORGANIZ ATION 10/22/2021 [facility] DATE CREATED AUTHOR AUTHOR'S ORGANIZ ATION 12/08/2023 [facility] DATE CREATED AUTHOR AUTHOR'S ORGANIZ ATION 12/09/2023 [facility] FOR RECORDS PERTAINING TO PATIENTS WHO ARE [...] BE BASED ON THE PRIMARY CLINICAL RECORDS. [facility] [employer] [facility]. provides no warranty or guarantee of the accuracy or completeness of information in this document.
--- NOTE | 2024-01-05 10:28 | PC.NURSE ---
Nursing Note Cardiac Stress Test Reviewed: Medication, allergies and patient history reviewed. Stress Test: [x ] Patient tolerated stress test well. [ ] Patient unable to tolerate walking on treadmill. Switched to Lexiscan stress test. [x ] No chest pain noted per patient [ ] Chest pain that resolved prior to leaving stress lab. [ ] No dyspnea noted. [x] Dyspnea that resolved prior to leaving stress lab. x ] Patient left stress lab asymptomatic and hemodynamically stable. [ ] Patient taken to the Emergency Room due to non-resolving symptoms following stress test. [ x] Patient achieved target heart rate. [ ] Patient unable to achieve target heart rate. [ ] Aminophylline administered as reversal agent to Lexiscan (Regadenoson). [ ] Nitro administered. Nursing Comments: Patients BP was high on arrival. Patient took his home medication and it was within limits to proceed with testing. Patient states he is back to baseline prior to leaving the stress lab.
== END 2024-01-05 08:29 | disposition home or self-care (01) ==
LOC: NM 08:29
PROVIDERS: PCP Family Medicine; Visit Provider Family Medicine
DX: R07.9 Chest pain, unspecified (principal)
CPT/HCPCS: 78452; 93017; 93306; A9500

== ENCOUNTER 2024-07-06 08:55 | Outpatient (OUT) | payer BC, SELFPAY | END 2024-07-06 08:56 | disposition home or self-care (01) | LOC: PST 08:55 | PROVIDERS: PCP Family Medicine; Visit Provider Surgery | DX: Z01.818 Encounter for other preprocedural examination (principal); D64.9 Anemia, unspecified; Z12.11 Encounter for screening for malignant neoplasm of colon ==

== ENCOUNTER 2024-07-07 07:24 | Day surgery (SDC) | payer BC, SELFPAY ==
--- NOTE | 2024-07-07 | OP_ITS ---
OPERATION DATE: 07/07/2024 PREOPERATIVE DIAGNOSIS: Anemia and colorectal screening. POSTOPERATIVE DIAGNOSIS: 3 mm ascending colon polyp and 5 mm rectal polyp. PROCEDURE: Colonoscopy to cecum with cold snare polypectomy x2. SURGEON: Kulwinder Chiang M.D. ANESTHESIA: Monitored anesthesia care. ESTIMATED BLOOD LOSS: Less than 1 mL. INDICATIONS AND CONSENT: Patient is a 63-year-old male presents for evaluation of anemia and colorectal screening. Indications, risks, benefits, alternatives of proceeding with colonoscopy were explained extensively to the patient, including the risks of bleeding, colon perforation or anesthetic complications. All of his questions were answered. Informed consent was obtained. PROCEDURE: Patient brought to the operating room, placed in the left lateral decubitus position. Monitored anesthesia care was provided. Rectal exam was performed which showed no masses or blood. The scope was inserted into the anal canal. Under direct visualization was advanced. With the aid of abdominal compression, it was advanced to the cecum where cecal markings were clearly identified. Upon withdrawal of the scope, mucosal surfaces were carefully examined. There were no mass lesions or inflammatory changes. No significant diverticulosis. Within the ascending colon, there was noted to be a 3 mm sessile polyp that was removed with cold snare with good hemostasis. Within the rectum, there was noted to be a 5 mm sessile polyp that was also removed with cold snare with good hemostasis. The scope was retroflexed in the anal canal. There was no significant hemorrhoidal disease. The scope was then withdrawn. Patient tolerated procedure well, was sent to recovery room in good condition. Follow up colonoscopy likely in five years, but will depend on the pathology report. CC: Nathan Heard M.D. JANELLE
[2024-07-07 07:30] VITALS: BP 147/85; PULSE 71; TEMP 36.1; O2SAT 95; BMI 31.2
[2024-07-07 07:53] LABS: Glucometer 178 mg/dL (74-106)
[2024-07-07] MEDS: 0.9 % SODIUM CHLORIDE 500 ML 50 ML IV (07:59)
[2024-07-07] MEDS: LACTATED RINGER'S SOLUTION 1,000 ML 50 ML IV (09:08)
[2024-07-07 09:20] VITALS: BP 112/54; PULSE 64; TEMP 36.3; O2SAT 97
[2024-07-07 09:35] VITALS: BP 122/71; PULSE 67; O2SAT 94
[2024-07-07 09:50] VITALS: BP 124/72; PULSE 64; O2SAT 97
== END 2024-07-07 09:50 | disposition home or self-care (01) ==
PROVIDERS: PCP Family Medicine; Visit Provider Surgery
PROC: (CPT 00811; principal; 2024-07-07 08:20)
DX: Z12.11 Encounter for screening for malignant neoplasm of colon (principal); D64.9 Anemia, unspecified; D12.2 Benign neoplasm of ascending colon; K62.1 Rectal polyp; E11.9 Type 2 diabetes mellitus without complications; I10 Essential (primary) hypertension; F41.9 Anxiety disorder, unspecified; F32.A Depression, unspecified; Z90.49 Acquired absence of other specified parts of digestive tract; Z79.84 Long term (current) use of oral hypoglycemic drugs; F17.290 Nicotine dependence, other tobacco product, uncomplicated; E78.5 Hyperlipidemia, unspecified
CPT/HCPCS: 00811; 45385; 36415; 82948; 88305; J2371; J2704